=== PATIENT | female | born 1935 | race Caucasian/White ===

== ENCOUNTER 2019-03-31 13:58 | Emergency (ER) | payer MEDICARE, OTHER ==
[~2019-03-31] VITALS: Ht 162.6 cm; Wt 49.9 kg
--- NOTE | 2019-03-31 18:37 | Diagnostic Imaging Report ---
History: Fall, pain Comparison studies: None Technique: Axial images were obtained from the brain and cervical spine. Coronal and sagittal images reconstructed from the axial data. Dose modulation, iterative reconstruction, and/or weight based adjustment of the mA/kV was utilized to reduce the radiation dose to as low as reasonably achievable. Intravenous contrast: None Findings: Head CT: Scalp/skull: No abnormalities. No fractures, blastic or lytic lesions. Brain sulci: Appropriate for age. Ventricles: Mild compensatory dilatation. No hydrocephalus. Extra-axial spaces: Small lipoma along the anterior falx cerebri without mass effect. No fluid collections. Parenchyma: Hypodensity extending from the posterior limb of left internal capsule extends superiorly to the jenkins radiata and centrum semiovale white matter likely reflects sequela of prior vascular insult or remote hematoma. Additional subcentimeter round hypodensity within the right lentiform nuclei is also consistent with a remote lacunar infarction. Nonspecific bilateral frontoparietal patchy white matter hypodensity are likely related to small vessel ischemic changes. No masses, hemorrhage, acute or chronic cortical vascular insults. Sellar/suprasellar region: Partial empty sella. Craniocervical junction: Patent foramen magnum. No Chiari one malformation. Incidental findings: Mild atherosclerotic calcification in bilateral carotid siphon. Cervical spine CT: Airway: Patent. Fractures: None. Soft tissues: No gross abnormalities. Atlantoaxial articulation: Intact. Alignment: Reversal of the normal cervical lordosis. 2 mm grade 1 anterolisthesis at C4-C5. Cervicomedullary junction: No abnormalities. Patent foramen magnum. Vertebrae: No infection or neoplasm. Degenerative changes: Moderate degenerative changes and anterior atlantodental joint. C3-C4: Mild right foraminal stenosis due to uncovertebral arthrosis. C4-C5: Mild left foraminal stenosis due to facet and uncovertebral arthrosis. C5-C6: Moderate to severe degenerative disc disease. Posterior disc osteophyte complex results in mild canal stenosis. Moderate right foraminal stenosis due to uncovertebral arthrosis. C6-C7: Severe degenerative disc disease. Posterior disc osteophyte complex results in mild canal stenosis. Incidental finding: Emphysematous changes in bilateral lung apices. IMPRESSION: Head CT: No acute abnormalities. Chronic findings: 1. Mild supratentorial white matter microvascular ischemic changes. 2. Chronic lacunar infarct in right lentiform nucleus. 3. Sequel a of chronic vascular insult or hemorrhage in left posterior limb of internal capsule, jenkins radiata and centrum semiovale. Cervical spine CT: 1. No acute cervical spine fracture or dislocation. Reversal of normal cervical lordosis is either positional or due to muscle spasm. 2. Cannot adequately evaluate for ligament, spinal cord and or vascular abnormalities. 3. Multilevel cervical spondylosis as detailed above. A preliminary report was given by Neuroradiology fellow Dr. Smart at 6:37 PM on 03/31/2019. I have reviewed the images and agree with findings in the preliminary report. Signed by: Dr. Jenise Macdonald M.D. on 03/31/2019 8:34 PM
--- NOTE | 2019-03-31 18:56 | Diagnostic Imaging Report ---
EXAM: PELVIS AP 1-2 VIEWS DATE: 03/31/2019 4:48 PM INDICATION: ^fall ^[id number] ^[id number] COMPARISON: None FINDINGS: Single view of the pelvis shows no evidence for displaced fracture or dislocation. Sacral struts appear intact. No obvious fractures at the hips. Soft tissues unremarkable. IMPRESSION: No acute bony abnormality. Signed by: Dr. Mahad Gray M.D. on 03/31/2019 6:52 PM
--- NOTE | 2019-03-31 19:01 | Diagnostic Imaging Report ---
EXAM: CHEST SINGLE (PORTABLE) DATE: 03/31/2019 4:48 PM INDICATION: ^fall ^[id number] ^[id number] COMPARISON: None FINDINGS: Lines and tubes: None Heart size normal. No focal pulmonary opacity, pleural effusion or pneumothorax. Lucencies in the upper lobes with scattered lung markings suggest bullous emphysema. Upper abdomen unremarkable. Surgical clips are seen in the right upper quadrant. No acute bony abnormality identified. There is a suggestion of air in the soft tissues of the left cervical area although this may only represent air trapped between skin folds. This may be better defined on CT of the neck of the same date. IMPRESSION: No evidence for acute disease. Likely changes of bullous emphysema. Questionable air in the left cervical soft tissues. Signed by: Dr. Mahad Gray M.D. on 03/31/2019 6:58 PM
--- NOTE | 2019-03-31 20:42 | NUR ---
SPOKE TO [facility] AT [facility], 45 MIN ETA ARRIVAL
[2019-03-31 21:49] VITALS: BP 135/70
== END 2019-03-31 21:52 | disposition home or self-care (01) ==
LOC: ER 13:58
DX: S00.83XA Contusion of other part of head, initial encounter (principal); M54.2 Cervicalgia; R10.2 Pelvic and perineal pain; W07.XXXA Fall from chair, initial encounter; M47.892 Other spondylosis, cervical region
CPT/HCPCS: 70450; 71045; 72125; 72170; 93005; 99284

== ENCOUNTER 2019-03-31 23:56 | Emergency (ER) | payer MEDICARE, OTHER ==
[~2019-03-31] VITALS: Ht 162.6 cm; Wt 49.9 kg
--- NOTE | 2019-04-01 01:18 | Diagnostic Imaging Report ---
History:Fall, right facial swelling. Comparison studies: None Technique: Axial images were obtained through the maxillofacial region. Coronal and sagittal images reconstructed from the axial data. Dose modulation, iterative reconstruction, and/or weight based adjustment of the mA/kV was utilized to reduce the radiation dose to as low as reasonably achievable. Intravenous contrast: None Findings: Soft tissues: Markedly right facial (the articular, prezygomatic, premaxillary and perimandibular soft tissue edema/hematoma. Minimal soft tissue emphysema in right retroantral region. Moderate enlargement of right masseter muscle possibly represents posttraumatic hematoma. Bones: Acute displaced fracture of the posterior lateral wall of right maxillary sinus. Chronic fracture deformity of right nasal bone without overlying soft tissue edema. Orbits: Globes: Intact Extra or intraconal abnormalities: None. Paranasal sinuses: Partial hemorrhagic opacification of right maxillary sinus with an air-fluid level. IMPRESSION: 1. Acute displaced fracture of the posterior lateral wall of right maxillary sinus. 2. Moderate right facial soft tissue edema/hematoma. Moderate right masseter muscle contusion/hematoma. 3. Chronic fracture deformity of right nasal bone. 4. Partial hemorrhagic opacification of right maxillary sinus. Signed by: Dr. Jenise Macdonald M.D. on 04/01/2019 1:15 AM
--- NOTE | 2019-04-01 01:18 | Diagnostic Imaging Report ---
Examination: Single AP view of the chest. COMPARISON: 03/31/2019 at 1822 INDICATION: Status post fall DISCUSSION: The lungs remain hyperinflated with hyperlucency of the lung apices. No new consolidation, pleural effusion, or pneumothorax. Multiple skin folds project over the left lung, as previously seen. Stable cardiomediastinal contour with tortuosity and atherosclerotic calcification of the thoracic aorta. Convexity of the AP window likely indicates pulmonary hypertension. No acute osseous abnormality. IMPRESSION: No acute cardiopulmonary abnormality or appreciable interval change relative to the examination from 03/31/2019. Signed by: Dr. Robbi Suero M.D. on 04/01/2019 1:15 AM
--- NOTE | 2019-04-01 01:20 | Diagnostic Imaging Report ---
Exam: Right knee 2 views History: Pain status post fall Comparison: None. Findings: No acute displaced fracture or dislocation. Advanced tricompartmental arthrosis with joint space narrowing, subchondral sclerosis, and marginal osteophytosis. No joint effusion. Soft tissues are unremarkable. Impression: No acute osseous abnormalities. Advanced tricompartmental arthrosis. Signed by: Dr. Robbi Suero M.D. on 04/01/2019 1:17 AM
--- NOTE | 2019-04-01 01:23 | Diagnostic Imaging Report ---
Exam: Right hip 2 views with frontal pelvis History: Status post fall Comparison: Pelvic radiograph 03/31/2019 Findings: No acute, displaced fracture or dislocation. The femoral head projects appropriately over the acetabulum. Mild symmetric degenerative arthrosis of the hips. The inferior sacral body and coccyx are obscured by rectal gas and stool. The sacral foramina appear intact superiorly. Sacroiliac joints and symphysis pubis are intact. Impression: 1. No acute osseous abnormality. Signed by: Dr. Robbi Suero M.D. on 04/01/2019 1:20 AM
[2019-04-01 01:26] LABS: BASOPHILS % 0.3 % (0.0-1.0); EOSINOPHILS # (AUTO) 0.2 (0.0-0.4); EOSINOPHILS % 1.6 % (0.0-6.0); HEMATOCRIT 42.8 % (34.2-44.1); HEMOGLOBIN 14.1 g/dL (12.0-16.0); LYMPHOCYTES # (AUTO) 1.7 (1.0-3.2); LYMPHOCYTES % 14.9 % (18.0-39.1); MEAN CORPUSCULAR HGB CONC 32.9 g/dL (31-35); MEAN CORPUSCULAR VOLUME 94.1 fL (81-99); MONOCYTES # (AUTO) 0.9 (0.2-0.8); MONOCYTES % 7.7 % (4.4-11.3); NEUTROPHILS # (AUTO) 8.4 (2.1-6.9); NEUTROPHILS % 75.1 % (38.7-80.0); PLATELET COUNT 134 x10e3/uL (140-360); RED BLOOD COUNT 4.55 x10e6/uL (3.6-5.1); RED CELL DISTRIBUTION WIDTH 12.2 % (11.7-14.4)
[2019-04-01 02:04] LABS: ALANINE AMINOTRANSFERASE 10 IU/L (0-55); ALBUMIN 3.5 g/dL (3.5-5.0); ALBUMIN/GLOBULIN RATIO 0.9 (0.8-2.0); ALKALINE PHOSPHATASE 84 IU/L (40-150); ANION GAP 12.4 mmol/L (8-16); BLOOD UREA NITROGEN 13 mg/dL (7-26); BUN/CREATININE RATIO 17 (6-25); CALCIUM 9.6 mg/dL (8.4-10.2); CARBON DIOXIDE 28 mmol/L (22-29); CHLORIDE 103 mmol/L (98-107); CREATINE KINASE 230 IU/L (29-168); CREATININE, SERUM 0.78 mg/dL (0.57-1.11); EST GLOMERULAR FILTRATION RATE > 60 ML/MIN (60-); GLUCOSE 102 mg/dL (74-118); POTASSIUM 4.4 mmol/L (3.5-5.1); SODIUM 139 mmol/L (136-145)
--- NOTE | 2019-04-01 02:24 | Diagnostic Imaging Report ---
EXAMINATION: Head CT without contrast. HISTORY:Fall. COMPARISON:CT brain from 03/31/2019. TECHNIQUE: Multidetector axial images were obtained from the foramen magnum to the vertex without contrast. The images were reconstructed using brain and bone algorithms. Thin section brain images were reformatted into coronal and sagittal planes. Dose modulation, iterative reconstruction, and/or weight based adjustment of the mA/kV was utilized to reduce the radiation dose to as low as reasonably achievable. Intravenous contrast: None IMAGE QUALITY: Acceptable. FINDINGS: Skull/scalp: No lytic or blastic. lesions. No surgical changes. Parenchyma: Unchanged focal hypodensity in posterior limb of left internal capsule that extends superiorly to the jenkins radiata and centrum semiovale represents seque[place] of prior vascular insult or remote hematoma. Unchanged chronic lacunar infarct in right lentiform nucleus. Unchanged nonspecific bilateral frontoparietal patchy white matter hypodensity likely represent small vessel ischemic changes. No acute hemorrhage, mass or acute major vascular territorial infarct. Arteries: No density suggestive of thrombosis. Mild atherosclerotic calcification in bilateral carotid siphon. Dural sinuses: No abnormal density suggestive of thrombosis. Ventricles: No hydrocephalus or displacement. Extra-axial spaces: No abnormal density. Brain volume: Generalized age-related cerebral volume loss. Craniocervical junction: No mass, Chiari malformation, or basilar invagination. Sella: No mass. Paranasal/mastoid sinuses: Partial hemorrhagic opacification of right maxillary sinus with acute displaced fracture of posterior lateral wall. IMPRESSION: No acute intracranial abnormality. No change since CT brain from 03/31/2019. Chronic findings: 1. Generalized age-related cerebral volume loss. 2. Mild supratentorial white matter microvascular ischemic changes. 3. Seque[place] of chronic vascular insult or hemorrhage in left posterior limb of internal capsule, jenkins radiata and centrum semiovale. 4. Chronic lacunar infarct in right lentiform nucleus. Signed by: Dr. Jenise Macdonald M.D. on 04/01/2019 2:21 AM
[2019-04-01] MEDS ORDERED: CIPROFLOXACIN 400 MG/D5W 200ML 200 ML IV SCH (02:30)
[2019-04-01] MEDS ORDERED: MORPHINE SULFATE INJ 4 MG/ML INJ 1ML IV PRN (02:30)
[2019-04-01] MEDS ORDERED: TETANUS/DIPHTHERIA TOX ADULT 0.5 ML SYR IM ONE (03:45)
--- NOTE | 2019-04-01 04:40 | NUR ---
PT'S DAUGHTER (ARIELA) CONTACTED AND INFORMED PT IS TO BE TRANSFERED TO [place] FOR MAXILLOFACIAL SURGEON EVALUATION;
[2019-04-01] MEDS: TETANUS/DIPHTHERIA TOX ADULT 0.5 ML SYR IM ONE ×2 (04:43→04:49)
--- NOTE | 2019-04-01 04:43 | Diagnostic Imaging Report ---
History: Fall. Comparison studies: CT cervical spine from 03/31/2019. Technique: Axial images were obtained through the cervical region.. Coronal and sagittal images reconstructed from the axial data. Dose modulation, iterative reconstruction, and/or weight based adjustment of the mA/kV was utilized to reduce the radiation dose to as low as reasonably achievable. Intravenous contrast: None Findings: Fractures: None. Soft tissue injuries: Subcutaneous soft tissue edema/hematoma is partially visualized in the right perimandibular region, zipper ironer space and right anterolateral aspect of the neck. The airway is patent. Atlantoaxial articulation: Intact. Alignment: Reversal of normal cervical lordosis is either positional or due to muscle spasm.. Levocurvature of the upper cervical spine is positional, as head is tilted. Unchanged 2 mm grade 1 anterolisthesis at C4-C5. Cervicomedullary junction: No abnormalities. The foramen magnum is patent. Soft tissues: No abnormalities. Vertebrae: No fractures, infection or neoplasm. Degenerative changes: Moderate degenerative changes in the anterior atlantodental joint. C3-C4: Mild right foraminal stenosis due to uncovertebral arthrosis. C4-C5: Mild left foraminal stenosis due to facet and uncovertebral arthrosis. C5-C6: Moderate to severe degenerative disc disease. Posterior disc osteophyte complex results in mild canal stenosis. Moderate right foraminal stenosis due to uncovertebral arthrosis. C6-C7: Severe degenerative disc disease. Posterior disc osteophyte complex results in mild canal stenosis. Incidental finding: Emphysematous changes in bilateral lung apices. IMPRESSION: 1. No acute cervical spine fracture or dislocation. Reversal of normal cervical lordosis is either positional or due to muscle spasm. 2. Extensive subcutaneous soft tissue edema/hematoma in right anterolateral aspect of the neck and right face is partially visualized. 3. Ligament, spinal cord and or vascular abnormalities cannot be excluded on the basis of this examination. 4. Unchanged cervical spondylosis as detailed above. Signed by: Dr. Jenise Macdonald M.D. on 04/01/2019 4:39 AM
--- NOTE | 2019-04-01 05:11 | NUR ---
REPORT CALLED TO SHEEBA RN-CHARGE NURSE AT [facility]
[2019-04-01 05:12] LABS: BILIRUBIN,URINE NEGATIVE (NEGATIVE); CLARITY,URINE CLEAR (CLEAR); COLOR,URINE YELLOW (YELLOW); KETONES,URINE 1+ (NEGATIVE); LEUKOCYTE ESTERASE ,URINE NEGATIVE (NEGATIVE); NITRITE,URINE NEGATIVE (NEGATIVE); PROTEIN,URINE DIPSTICK NEGATIVE (NEGATIVE); URINE UROBILINOGEN 0.2 mg/dL (0.2 - 1)
[2019-04-01 05:31] LABS: BACTERIA,URINE MODERATE /HPF; EPITHELIAL CELLS,URINE MODERATE /LPF; WBC,URINE (MAN) 0-5 /HPF (0-5)
[2019-04-01 05:39] VITALS: BP 132/63
== END 2019-04-01 05:41 | disposition other institution (70) ==
LOC: ER 23:56
DX: S02.402A Zygomatic fracture, unspecified side, initial encounter for closed fracture (principal); R55 Syncope and collapse; S70.01XA Contusion of right hip, initial encounter; S80.01XA Contusion of right knee, initial encounter; W19.XXXA Unspecified fall, initial encounter; Y92.128 Other place in nursing home as the place of occurrence of the external cause
CPT/HCPCS: 36415; 70450; 70486; 71045; 72125; 73502; 73560; 80053; 81001; 82550; 82553; 84484; 85025; 90471; 90714; 93005; 99284; J0744

== ENCOUNTER 2019-11-18 03:31 | Emergency (ER) | payer MEDICARE, OTHER ==
[~2019-11-18] VITALS: Ht 162.6 cm; Wt 49.9 kg
--- OUTSIDE RECORDS SUMMARY | 2019-11-18 03:34 | XMS REPORT ---
Author [facility] Address Unknown Phone Unavailable Care Team Providers Care Foreign Language Stenographer Name Role Phone ANNA WATSON, DARREN PP LILLIAN TOTH Unavailable Unavailable Trinity WHITTINGTON Unavailable Unavailable Payers Payer Name Policy Type Policy Number Effective Date Expiration Date [facility] [id number] 2017 00:00:00 [employer] [id number] 2001 00:00:00 [facility] [id number] 2017 00:00:00 [employer] [id number] 2001 00:00:00 Problems This patient has no known problems. Allergies, Adverse Reactions, Alerts Allergy Name Allergy Type Status Severity Reaction(s) Onset Date Inactive Date Treating Clinician Comments codeine DA Active U 2019-04-01 00:00:00 Penicillin Allergy to Substance Active Unknown 2019-03-31 00:00:00 Codeine Allergy to Substance Active Unknown 2019-03-31 00:00:00 CODEINE DA Active U 2008-11-24 00:00:00 No Known Contrast Allergies DA Active U 2008-11-24 00:00:00 No Known Food Allergies DA Active U 2008-11-24 00:00:00 No Known Other Allergies DA Active U 2008-11-24 00:00:00 Medications This patient has no known medications. Procedures and Interventions Procedure Date / Time Performed Performing Clinician Computed tomography of brain without radiopaque contrast 2019-04-01 00:00:[address] maxillofacial area wo contrast 2019-04-01 00:00:00 LILLIAN TOTH Computed tomography of cervical spine without contrast 2019-04-01 00:00:00 LILLIAN TOTH Computed tomography of brain without radiopaque contrast 2019-03-31 00:00:00 KENDRA RAMOS Computed tomography of cervical spine without contrast 2019-03-31 00:00:00 KENDRA RAMOS Encounters Start Date/Time End Date/Time Encounter Type Admission Type Attending [facility] Care Facility Care Department Encounter ID 2019-03-31 23:56:00 2019-04-01 05:41:00 Departed Emergency Room [address] [facility] [id number] 2019-03-31 13:58:00 2019-03-31 21:52:00 Departed Emergency Room [address] [facility] [id number] Results Test Description Test Time Test Comments Text Results Atomic Results Result Comments - XR CHEST 1 V 2019-04-08 15:20:00 FAX: Adan Rachel [phone] [place]: St: ADM FAX: Geremias Calvo MD [phone] Name: KEVIN GRIMALDO [facility] : 1935 Age/S: 83/F [address] [place] [address] Unit #: [id number] Loc: [address] [address] Phys: Geremias Blanco MD Acct: [id number] Dis Date: Status: ADM IN PHONE #: [phone] Exam Date: 04/08/2019 1454 FAX #: [phone] Reason: right CT removal EXAMS: CPT CODE: [id number] XR CHEST 1 V 84481 CLINICAL HISTORY:right CT removal COMPARISON:April 08, 2019 at 0818. Frontal film of the chest performed at 1423 on April 08, 2019 demonstrates that previously noted pigtail catheter in right hemithorax has been removed. Monitor leads are in place. Heart size is normal. Bibasilar pulmonary opacities are present, unchanged since previous examination. There is no evidence of recurrence of pneumothorax since removal of the chest tube. There is evidence of rib fracture identified on the right side. Emphysematous changes are present in both upper lung stern. IMPRESSION: 1. Interval removal of right-sided chest tube with no evidence of pneumothorax. 2. Bibasilar pulmonary opacities without significant interval change since earlier examination done on the same day. 3. Emphysematous changes in both upper lung stern are present. at 1520 Reported and signed by: Danis Salomon M.D. CC: Adan Nelson MD; Geremias Blanco MD Technologist: AN Rincon RT(R); Alexa Taveras RT(R) Trnscrd Date/Time/By: 04/08/2019 (1520) : By: John [facility] Print D/T: S: 04/08/2019 (2983) PAGE 1 Signed Report - XR CHEST 1 V 2019-04-08 08:53:00 FAX: Adan Rachel [phone] [place]: St: [facility] FAX: Geremias Calvo MD [phone] Name: KEVIN GRIMALDO [facility] : 1935 Age/S: 83/F [address] [place] [address] Unit #: [id number] Loc: [place] [address] Phys: Geremias Blanco MD Acct: [id number] Dis Date: Status: ADM IN PHONE #: [phone] Exam Date: 04/08/2019836 FAX #: [phone] Reason: f/u right ptx EXAMS: CPT CODE: [id number] XR CHEST 1 V 60020 CLINICAL HISTORY:Follow-up right pneumothorax. COMPARISON:April 07, 2019 at 0927 Frontal film of the chest performed at 0818 on April 08, 2019 demonstrates monitor leads in place. Chest tube is present in right hemithorax. Heart size is normal. Bibasilar opacities are present with slightly better aeration of right lung compared to previous examination. Skinfold is present along the right lateral chest wall. Previously noted apical pneumothorax is not perceptible on current examination. Presence of skin fold on the right demonstrates an evaluation of pneumothorax somewhat difficult and if clinically desired, repeat examination is recommended. IMPRESSION: 1. Chest tube present in right hemithorax. 2. Bibasilar pulmonary opacities with better aeration of right lung. 3. No convincing pneumothorax is seen on the right side however, because of presence of skin fold if clinically desired, repeat examination is recommended. at 0853 Reported and signed by: Danis Salomon M.D. CC: Adan Nelson MD; Geremias Blanco MD Technologist: AN Rincon RT(R) Trnscrd Date/Time/By: 04/08/2019 (0853) : By: John Orig Print D/T: S: 04/08/2019 (0856) PAGE 1 Signed Report - XR CHEST 1 V 2019-04-07 10:42:00 FAX: Adan Rachle [phone] [place]: St: [facility] FAX: Julianna Lowry Name: KEVIN GRIMALDO [facility] : 1935 Age/S: 83/F [address] [place] [address] Unit #: [id number] Loc: [place] [address] Phys: Julianna Lowry ERNIE AGACNP Acct: [id number] Dis Date: Status: ADM IN PHONE #: [phone] Exam Date: 04/07/2019 1031 FAX #: [phone] Reason: right chest tube, right pneumothorax EXAMS: CPT CODE: [id number] XR CHEST 1 V 30017 CHEST 1 VIEW: 04/07/2019 COMPARISON: April 06, 2019 CLINICAL HISTORY: right chest tube, right pneumothorax FINDINGS: The cardiovascular silhouette is normal in size. Small bore right-sided chest tube is again seen. Bibasilar infiltrates are present, right greater than left. These are relatively unchanged. There is questionable trace residual right apical pneumothorax. No evidence of mediastinal shift. IMPRESSION: Persistent bibasilar infiltrates, right greater than left. These are relatively stable. Questionable trace residual right apical pneumothorax. at 1042 Reported and signed by: Baltazar Dodson M.D. CC: Adan Nelson MD; JULIANNA LOWRY [facility] Technologist: RT Gayla(Amy) Trnscrd Date/Time/By: 04/07/2019 (8967) : By: [email or web address] Orig Print D/T: S: 04/07/2019 (6751) PAGE 1 Signed Report - XR CHEST 1 V 2019-04-06 10:32:00 FAX: Adan Rachel [phone] [place]: St: ADM FAX: Geremias Calvo MD [phone] Name: KEVIN GRIMALDO [facility] : 1935 Age/S: 83/F [address] [place] [address] Blvd Unit #: [id number] Loc: [address] [place] [address] Phys: Geremias Blanco MD Acct: [id number] Dis Date: Status: ADM IN PHONE #: [phone] Exam Date: 04/06/2019 1021 FAX #: [phone] Reason: f/u ptx EXAMS: CPT CODE: [id number] XR CHEST 1 V 87472 EXAM: Single view AP chest. EXAM DATE: 04/06/2019 at 0848 hours CLINICAL HISTORY: f/u ptx COMPARISON: April 05, 2019 at 0839 hours Small caliber right-sided chest tube is present and monitor wires overlie the chest. There is questionable minimal residual apical pneumothorax although this is not well visualized. Bilateral increased opacities in the lower lungs are noted. The findings may represents pleural effusions although infectious process cannot be excluded. Heart size is within normal limits. Atherosclerotic calcifications are identified in the aorta. Visualized osseous structures demonstrate no acute abnormalities. IMPRESSION: Questionable small right apical none pneumothorax residual. Opacities in the lower lungs bilaterally may represent pleural effusions. The possibility of early infiltrates cannot be excluded. The finding is not significantly changed compared to the prior exam. at 1032 Reported and signed by: Tarsha Larson M.D. CC: Adan Nelson MD; Geremias Blanco MD Technologist: Elvira Forbes, RT(R), RTT Trnpard Date/Time/By: 04/06/2019 (1032) : By: Jahaira Orig Print D/T: S: 04/06/2019 (1035) PAGE 1 Signed Report - XR CHEST 1 V 2019-04-05 09:58:00 FAX: Adan Rachel [phone] [place]: St: ADM FAX: Geremias Calvo MD [phone] Name: KEVIN GRIMALDO [facility] [place] : 1935 Age/S: 83/F [address] [place] [address] Blvd Unit #: [id number] Loc: [place] [address] Phys: Geremias Blanco MD Acct: [id number] Dis Date: Status: ADM IN PHONE #: [phone] Exam Date: 04/05/2019 09 FAX #: [phone] Reason: f/u ptx EXAMS: CPT CODE: [id number] XR CHEST 1 V 54484 Portable chest performed April 05, 2019 0840 hours. COMPARISON: April 04, 2019. CLINICAL HISTORY: f/u ptx. DISCUSSION: Single portable chest is submitted. Smallbore right pleural chest tube is again noted. Increasing focal opacity in the right lower lobe, compatible with atelectasis or infiltrate. No clear residual pneumothorax is seen. Heart size is normal. Atherosclerotic vascular calcifications are present. Degenerative changes are present throughout the osseous structures.. IMPRESSION: 1. Increasing focal opacity in the right lower lobe, compatible with atelectasis or infiltrate. 2. No clear residual pneumothorax seen. at 0958 Reported and signed by: Veronique Bender M.D. CC: Adan Nelson MD; Geremias Blanco MD Technologist: Linda Madsen RT(R)R Trnscrd Date/Time/By: 04/05/2019 (0958) : By: AdelineG Orig Print D/T: S: 04/05/2019 (1009) PAGE 1 Signed Report - XR ELBOW 2 VIEWS RT 2019-04-04 20:15:00 FAX: Julianna Lowry [place]: St: ADM FAX: Orlando Slater MD [phone] Name: KEVIN GRIMALDO [facility] [place] : 1935 Age/S: 83/F [address] [place] [address] Unit #: [id number] Loc: [place] [address] Phys: Julianna Lowry [employer] AGACNP Acct: [id number] Dis Date: Status: ADM IN PHONE #: [phone] Exam Date: 04/04/20191934 FAX #: [phone] Reason: right elbow pain, 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 Mild soft tissue thickening around the elbow. IMPRESSION: No acute fracture or malalignment SL: AP-H at 2014 Reported and signed by: Elias Benitez M.D. CC: JULIANNA KLEIN; Orlando Ball MD Technologist: Quentin Dumont RT(R) Trnscrd Date/Time/By: 04/04/2019 (2014) : By: [email or web address] Orig Print D/T: S: 04/04/2019 (2018) PAGE 1 Signed Report CBC W/AUTO DIFF 2019-04-04 14:21:00 WHITE BLOOD CELL (test code=WBC) 11.09 x10 3/uL 4.5-11.0 RED BLOOD CELL (test code=RBC) 3.67 x10 6/uL 3.54-5.02 HEMOGLOBIN (test code=HGB) 11.6 g/dL 11.0-15.0 HEMATOCRIT (test code=HCT) 36.5 % 33.0-45.0 MEAN CELL VOLUME (test code=MCV) 99.5 fL 81.0-99.0 MEAN CELL HGB (test code=MCH) 31.6 pg 27.0-33.0 MEAN CELL HGB CONCETRATION (test code=MCHC) 31.8 g/dL 33.0-37.0 RED CELL DISTRIBUTION WIDTH CV (test code=RDW) 12.7 % 11.5-14.5 RED CELL DISTRIBUTION WIDTH SD (test code=RDW-SD) 46.2 fL 37.0-54.0 PLATELET COUNT (test code=PLT) 112 x10 3/uL 150-400 MEAN PLATELET VOLUME (test code=MPV) 10.6 fL 7.0-9.0 NEUTROPHIL % (test code=NT%) 81.0 % 56.0-77.0 IMMATURE GRANULOCYTE % (test code=IG%) 0.3 % 0.0-2.0 LYMPHOCYTE % (test code=LY%) 8.6 % 14.0-32.0 MONOCYTE % (test code=MO%) 9.7 % 4.8-9.0 EOSINOPHIL % (test code=EO%) 0.1 % 0.3-3.7 BASOPHIL % (test code=BA%) 0.3 % 0.0-2.0 NUCLEATED RBC % (test code=NRBC%) 0.0 % 0-0 NEUTROPHIL # (test code=NT#) 8.99 x10 3/uL 2.0-7.6 IMMATURE GRANULOCYTE # (test code=IG#) 0.03 x10 3/uL 0.00-0.03 LYMPHOCYTE # (test code=LY#) 0.95 x10 3/uL 1.0-3.8 MONOCYTE # (test code=MO#) 1.08 x10 3/uL 0.1-0.8 EOSINOPHIL # (test code=EO#) 0.01 x10 3/uL 0.0-0.2 BASOPHIL # (test code=BA#) 0.03 x10 3/uL 0.0-0.2 NUCLEATED RBC # (test code=NRBC#) 0.00 x10 3/uL 0.0-0.1 MANUAL DIFF REQUIRED (test code=MDIFF) NO PLT [id number] 14:21:00* Test Item Value Reference Range Comments PLATELET ESTIMATE (test code=PLTEST) 140-175 THOUSAND ADEQUATE PLATELET MORPHOLOGY (test code=PLTMORPH) LARGE PLATELETS - XR CHEST 1 [id number] 11:24:00 FAX: Orlando Slater MD [phone] [place]: St: ADM FAX: Geremias Calvo MD [phone] Name: KEVIN GRIMALDO [facility] [place] : 1935 Age/S: 83/F [address] [place] [address] Unit #: [id number] Loc: [address] [place] [address] Phys: Geremias Blanco MD Acct: [id number] Dis Date: Status: ADM IN PHONE #: [phone] Exam Date: 04/04/2019918 FAX #: [phone] Reason: f/u ptx EXAMS: CPT CODE: [id number] XR CHEST 1 V 55339 Portable chest performed April 04, 2019 0920 hours. COMPARISON: April 03, 2019. CLINICAL HISTORY: f/u ptx. DISCUSSION: Single portable chest is submitted. Right pleural chest tube is again noted. No clear residual pneumothorax is seen. Stable atelectasis is present in both lungs. Heart size is normal. Atherosclerotic vascular calcifications are noted. No acute osseous abnormality seen. IMPRESSION: 1. No clear residual right pneumothorax is seen.. at 1124 Reported and signed by: Veronique Bender M.D. CC: Orlando Ball MD; Geremias Blanco MD Technologist: Sherron Tran RT(R) Trnscrd Date/Time/By: 04/04/2019 (4161) : By: Aminata Orig Print D/T: S: 04/04/2019 (2201) PAGE 1 Signed Report CBC W/AUTO [id number] 07:10:00* Test Item Value Reference Range Comments WHITE BLOOD CELL (test code=WBC) 11.09 x10 3/uL 4.5-11.0 RED BLOOD CELL (test code=RBC) 3.67 x10 6/uL 3.54-5.02 HEMOGLOBIN (test code=HGB) 11.6 g/dL 11.0-15.0 HEMATOCRIT (test code=HCT) 36.5 % 33.0-45.0 MEAN CELL VOLUME (test code=MCV) 99.5 fL 81.0-99.0 MEAN CELL HGB (test code=MCH) 31.6 pg 27.0-33.0 MEAN CELL HGB CONCETRATION (test code=MCHC) 31.8 g/dL 33.0-37.0 RED CELL DISTRIBUTION WIDTH CV (test code=RDW) 12.7 % 11.5-14.5 RED CELL DISTRIBUTION WIDTH SD (test code=RDW-SD) 46.2 fL 37.0-54.0 PLATELET COUNT (test code=PLT) 112 x10 3/uL 150-400 MEAN PLATELET VOLUME (test code=MPV) 10.6 fL 7.0-9.0 NEUTROPHIL % (test code=NT%) 81.0 % 56.0-77.0 IMMATURE GRANULOCYTE % (test code=IG%) 0.3 % 0.0-2.0 LYMPHOCYTE % (test code=LY%) 8.6 % 14.0-32.0 MONOCYTE % (test code=MO%) 9.7 % 4.8-9.0 EOSINOPHIL % (test code=EO%) 0.1 % 0.3-3.7 BASOPHIL % (test code=BA%) 0.3 % 0.0-2.0 NUCLEATED RBC % (test code=NRBC%) 0.0 % 0-0 NEUTROPHIL # (test code=NT#) 8.99 x10 3/uL 2.0-7.6 IMMATURE GRANULOCYTE # (test code=IG#) 0.03 x10 3/uL 0.00-0.03 LYMPHOCYTE # (test code=LY#) 0.95 x10 3/uL 1.0-3.8 MONOCYTE # (test code=MO#) 1.08 x10 3/uL 0.1-0.8 EOSINOPHIL # (test code=EO#) 0.01 x10 3/uL 0.0-0.2 BASOPHIL # (test code=BA#) 0.03 x10 3/uL 0.0-0.2 NUCLEATED RBC # (test code=NRBC#) 0.00 x10 3/uL 0.0-0.1 MANUAL DIFF REQUIRED (test code=MDIFF) NO PLT [id number] 07:10:00* Test Item Value Reference Range Comments PLATELET ESTIMATE (test code=PLTEST) THOUSAND ADEQUATE CBC W/AUTO [id number] 07:10:00* Test Item Value Reference Range Comments WHITE BLOOD CELL (test code=WBC) 11.09 x10 3/uL 4.5-11.0 RED BLOOD CELL (test code=RBC) 3.67 x10 6/uL 3.54-5.02 HEMOGLOBIN (test code=HGB) 11.6 g/dL 11.0-15.0 HEMATOCRIT (test code=HCT) 36.5 % 33.0-45.0 MEAN CELL VOLUME (test code=MCV) 99.5 fL 81.0-99.0 MEAN CELL HGB (test code=MCH) 31.6 pg 27.0-33.0 MEAN CELL HGB CONCETRATION (test code=MCHC) 31.8 g/dL 33.0-37.0 RED CELL DISTRIBUTION WIDTH CV (test code=RDW) 12.7 % 11.5-14.5 RED CELL DISTRIBUTION WIDTH SD (test code=RDW-SD) 46.2 fL 37.0-54.0 PLATELET COUNT (test code=PLT) 112 x10 3/uL 150-400 MEAN PLATELET VOLUME (test code=MPV) 10.6 fL 7.0-9.0 NEUTROPHIL % (test code=NT%) 81.0 % 56.0-77.0 IMMATURE GRANULOCYTE % (test code=IG%) 0.3 % 0.0-2.0 LYMPHOCYTE % (test code=LY%) 8.6 % 14.0-32.0 MONOCYTE % (test code=MO%) 9.7 % 4.8-9.0 EOSINOPHIL % (test code=EO%) 0.1 % 0.3-3.7 BASOPHIL % (test code=BA%) 0.3 % 0.0-2.0 NUCLEATED RBC % (test code=NRBC%) 0.0 % 0-0 NEUTROPHIL # (test code=NT#) 8.99 x10 3/uL 2.0-7.6 IMMATURE GRANULOCYTE # (test code=IG#) 0.03 x10 3/uL 0.00-0.03 LYMPHOCYTE # (test code=LY#) 0.95 x10 3/uL 1.0-3.8 MONOCYTE # (test code=MO#) 1.08 x10 3/uL 0.1-0.8 EOSINOPHIL # (test code=EO#) 0.01 x10 3/uL 0.0-0.2 BASOPHIL # (test code=BA#) 0.03 x10 3/uL 0.0-0.2 NUCLEATED RBC # (test code=NRBC#) 0.00 x10 3/uL 0.0-0.1 MANUAL DIFF REQUIRED (test code=MDIFF) NO PLT [id number] 07:10:00* Test Item Value Reference Range Comments PLATELET ESTIMATE (test code=PLTEST) THOUSAND ADEQUATE - CT DRN CAMDEN/RETRO [id number] 07:09:00 Name: KEVIN GRIMALDO [facility] : 1935 Age/S: 83 / F [address] [place] [address] Unit #: [id number] Loc: [place] [address] Phys: Geremias Blanco MD Acct: [id number] Dis Date: Status: ADM IN PHONE #: [phone] Exam Date: 04/03/2019 1655 FAX #: [phone] Reason: right pneumothorax EXAMS: CPT CODE: [id number] CT DRN CAMDEN/RETRO PERC 46898 PROCEDURE: Placement of percutaneous chest tube using CT guidance. INDICATION: 83-year-old female with right- sided pneumothorax. COMPARISON: Chest radiograph 04/03/2019 TECHNICAL: CT imaging performed at this location utilizes radiation dose optimization techniques which include one or more of the following: -Automated exposure control -Adjustment of the mA and/or kV according to patient size -Use of iterative reconstruction technique CT Radiation Dose: EWO=021.6 mGy-cm MODERATE SEDATION: Local anesthesia only. No sedation given. PROCEDURE: The procedure, risks, benefits and alternatives were discussed. Informed c onsent was obtained. Timeout was performed prior to the procedure. The patient was placed in the supine position. Initial imaging was performed to demonstrate the pneumothorax. The right upper chest was prepp ed and draped in the usual sterile fashion. 1% lidocaine was used for loca l anesthesia. Using imaging guidance, an 8.5-Greek pigtail catheter was a dvanced into the right pleural space using trocar technique. The pneumoth orax was evacuated. Final imaging was performed. The catheter was secured to the skin. Sterile dressing was applied. The drainage catheter was conn ected to a Pleur-evac. There were no evident complications and the patient had no complaints. FINDINGS: Initial imaging: Emphysematous changes in the lungs. Moderate right pneumothorax. Atelectasis/consoli dation noted involving the right lower lobe. Atherosclerotic calcificatio ns in the aorta and coronary arteries. Acute fractures noted involving th e right anterior 2nd and 3rd ribs. Old healed right posterior 8th and 9th rib fractures. Final imaging: Final images demonstrate percutaneous chest tube well positioned within the right pleural space with evacuation of the majority of the pneumothorax and reexpansion of the right lung. Persistent atelectasis/consolidation is noted involving the right lower lo be. PAGE 1 Signed Report (CONTINUED) Name: KEVIN GRIMALDO [facility] : 1935 Age/S: 83 / F [address] [place] [address] Blvd Unit #: [id number] Loc: [place] [address] Phys: Geremias Blanco MD Acct: [id number] Dis Date: Status: ADM IN PHONE #: [phone] Exam Date: 04/03/2019 1655 FAX #: [phone] Reason: right pneumothorax EXAMS: CPT CODE: [id number] DRN CAMDEN/RETRO PERC 81249 <Continued> IMPRESSION: 1. Technically successful placement of percutaneous chest tube within the right pleural space using CT guidance. SL: K58-H at 0709 Reported and signed by: Terrell Comer M.D. CC: Orlando Ball MD; Geremias Blanco MD Technologist:RT Frank(R)(CT); Johan CollinsI: D LP: Trnscb Date/Time: 04/04/2019 (0709) [email or web address] Orig Print D/T: S: 04/04/2019 (12) PAGE 2 Signed R eport RENAL FUNCTION [id number] 04:58:00* Test Item Value Reference Range Comments SODIUM (test code=NA) 147 mEq/L 134-147 POTASSIUM (test code=K) 3.8 mEq/L 3.4-5.0 CHLORIDE (test code=CL) 118 mEq/L 100-108 CARBON DIOXIDE (test code=CO2) 26 mEq/L 21-33 ANION GAP (test code=GAP) 7 0-20 GLUCOSE (test code=GLU) 90 mg/dL 70-110 BLOOD UREA NITROGEN (test code=BUN) 22 mg/dL 7-18 GLOMERULAR FILTRATION RATE (test code=GFR) 53.1 70-80 Units of measure=ml/min/1.73 m2 CREATININE (test code=CREAT) 1.0 mg/dL 0.6-1.3 ALBUMIN (test code=ALB) 2.40 g/dL 3.4-5.0 CALCIUM (test code=CA) 8.1 mg/dL 8.0-10.5 PHOSPHOROUS (test code=PHOS) 1.9 mg/dL 2.5-4.9 [id number] 04:58:00* Test Item Value Reference Range Comments MAGNESIUM (test code=MAG) 2.10 mg/dL 1.8-2.4 [id number] 23:37:00* Test Item Value Reference Range Comments TROPONIN-I (test code=TROPI) < 0.015 ng/mL 0.000-0.045 Negative: <=0.045 Positive: >=0.046 Correlation with serial results, other cardiac markers andclinical findings is necessary to determine the clinicalsignificance of this result. Results using different methodologies should not be comparedto one another as quantitative results may vary by method. [id number] 20:57:00* Test Item Value Reference Range Comments TROPONIN-I (test code=TROPI) < 0.015 ng/mL 0.000-0.045 Negative: <=0.045 Positive: >=0.046 Correlation with serial results, other cardiac markers andclinical findings is necessary to determine the clinicalsignificance of this result. Results using different methodologies should not be comparedto one another as quantitative results may vary by method. - XR CHEST 1 [id number] 18:35:00 FAX: Orlando Slater MD [phone] [place]: St: ADM FAX: Geremias Calvo MD [phone] Name: KEVIN GRIMALDO [facility] : 1935 Age/S: 83/F [address] [place] [address] Blvd Unit #: [id number] Loc: [address] [address] Phys: Geremias Blanco MD Acct: [id number] Dis Date: Status: ADM IN PHONE #: [phone] Exam Date: 04/03/20191814 FAX #: [phone] Reason: f/u ptx EXAMS: CPT CODE: [id number] XR CHEST 1 V 84558 PROCEDURE: Chest Radiograph. Clinical Indication: Follow-up pneumothorax. Comparison: Chest radiograph 04/03/2019 at 12:04 PM. FINDINGS: The chest shows interval near-complete resolution of a previously noted large right pneumothorax post small bore right pigtail chest tube placement. There is emphysematous change in the upper lobes with subsegmental atelectasis at the right lung base. The heart size and pulmonary vasculature are normal. The trachea is midline. There are no clinically significant osseous abnormalities noted. IMPRESSION: 1. Near complete interval resolution of a previously noted large right pneumothorax post small bore right chest tube placement. 2. Emphysematous change with right lower lobe subsegmental atelectasis. SL: CY-H at 1835 Reported and signed by: Reynold Rodriges M.D. CC: Orlando Ball MD; Geremias Blanco MD Technologist: RT Rich(R) Trnscrd Date/Time/By: 04/03/2019 (1835) : By: Alli Orig Print D/T: S: 04/03/2019 (733) PAGE 1 Signed Report PROCALCITONIN (PCT)2019-04-03 16:46:00* Test Item Value Reference Range Comments PROCALCITONIN (PCT) (test code=PROCAL) 1.37 ng/mL 0.00-0.05 PROCALCITONIN (PCT) NORMAL RANGE (ADULT): <0.05 NG/ML. * a concentration <0.5 ng/mL represents a low risk of severe sepsis and/or septic shock.* a concentration >2 ng/mL represents a high risk of severe sepsis and/or septic shock.Nevertheless, concentrations <0.5 ng/mL do not exclude aninfection, on account of localized infections (withoutsystemic signs) which can be associated with such lowconcentrations, or a systemic infection in its initialstages (< 6 hours). Furthermore, increased procalcitonincan occur without infection. PCT concentrations between 0.5and 2.0 ng/mL should be interpreted taking into account thepatient's history. It is recommended to retest PCT within6-24 hours if any concentrations <2 ng/mL are obtained. URINALYSIS [id number] 15:58:00* Test Item Value Reference Range Comments UA COLOR (test code=COLU) YELLOW YEL/STRAW UA APPEARANCE (test code=APPU) CLOUDY CLEAR UA GLUCOSE DIPSTICK (test code=DGLUU) NEGATIVE NEGATIVE UA BILIRUBIN DIPSTICK (test code=BILU) NEGATIVE NEGATIVE UA KETONE DIPSTICK (test code=KETU) NEGATIVE NEGATIVE UA SPECIFIC GRAVITY (test code=SGU) 1.014 1.005-1.030 UA BLOOD DIPSTICK (test code=MORRIS) 2+ NEGATIVE UA PH DIPSTICK (test code=DOMINIC) 5.0 5.0-7.0 UA PROTEIN DIPSTICK (test code=PROU) NEGATIVE NEGATIVE UA UROBILINIOGEN DIPSTICK (test code=URO) 0.2 mg/dL 0.2-1.0 UA NITRITE DIPSTICK (test code=AMARJIT) NEGATIVE NEGATIVE UA LEUKOCYTE ESTERASE DIPSTICK (test code=LEUU) NEGATIVE NEGATIVE UA RBC (test code=RBCU) 0-3 RBC/HPF 0-3 UA WBC NO REFLEX (test code=WBCUCL) 0-3 WBC/HPF 0-3 UA BACTERIA (test code=BACU) TRACE /HPF NONE SEEN UA SQUAMOUS CELLS (test code=SQU) 0-5 /HPF NONE SEEN UA HYALINE CAST (test code=HYALU) 6-10 /LPF NONE SEEN UA MUCUS (test code=MUCU) TRACE /LPF NONE SEEN UA AMORPHOUS SEDIMENT (test code=AMORU) TRACE /HPF NONE Indication for culture: Sev. Sepsis-no other srcSpecimen Description: JESUS CATHUA RFLX MICR CULT IF [id number] 15:58:00* Test Item Value Reference Range Comments UA WBC (test code=WBCU) 0-3 WBC/HPF 0-3 Indication for culture: Sev. Sepsis-no other srcSpecimen Description: [facility] [id number] 15:22:00* Test Item Value Reference Range Comments LACTIC ACID (test code=LACT) 1.2 mmol/L 0.4-1.9 [id number] 15:22:00* Test Item Value Reference Range Comments TROPONIN-I (test code=TROPI) < 0.015 ng/mL 0.000-0.045 Negative: <=0.045 Positive: >=0.046 Correlation with serial results, other cardiac markers andclinical findings is necessary to determine the clinicalsignificance of this result. Results using different methodologies should not be comparedto one another as quantitative results may vary by method. COMPREHENSIVE METABOLIC [id number] 15:22:00* Test Item Value Reference Range Comments SODIUM (test code=NA) 144 mEq/L 134-147 POTASSIUM (test code=K) 4.7 mEq/L 3.4-5.0 CHLORIDE (test code=CL) 113 mEq/L 100-108 CARBON DIOXIDE (test code=CO2) 31 mEq/L 21-33 ANION GAP (test code=GAP) 5 0-20 GLUCOSE (test code=GLU) 99 mg/dL 70-110 BLOOD UREA NITROGEN (test code=BUN) 31 mg/dL 7-18 GLOMERULAR FILTRATION RATE (test code=GFR) 30.9 70-80 Units of measure=ml/min/1.73 m2 CREATININE (test code=CREAT) 1.6 mg/dL 0.6-1.3 TOTAL PROTEIN (test code=PROT) 7.0 g/dL 6.4-8.2 ALBUMIN (test code=ALB) 3.00 g/dL 3.4-5.0 CALCIUM (test code=CA) 8.8 mg/dL 8.0-10.5 BILIRUBIN TOTAL (test code=BILT) 0.70 mg/dL 0.0-1.0 SGOT/AST (test code=AST) 170 IUnit/L 15-37 SGPT/ALT (test code=ALT) 66 IUnit/L 15-65 ALKALINE PHOSPHATASE TOTAL (test code=ALKP) 76 IUnit/L 20-125 [id number] 15:22:00* Test Item Value Reference Range Comments LIPASE (test code=LIP) 34 IUnit/L 73-393 PROTHROMBIN [id number] 15:16:00* Test Item Value Reference Range Comments PROTHROMBIN TIME PATIENT (test code=PTP) 13.1 SECONDS 9.3-12.9 INTERNATIONAL NORMAL RATIO (test code=INR) 1.2 0.8-1.2 TARGET INR BY INDICATION Indication INR1. Prophylaxis of venous thrombosis 2.0 - 3.0 (orthopedic surgery), Prophylaxis of venous thrombosis (other than high-risk surgery), Treatment of Deep Vein Thrombosis/Pulmonary Embolism, Prevention of systemic embolism - Tissue heart valves, Acute Myocardial Infarction (to prevent systemic embolism), Valvular heart disease, Atrial Fibrillation, Bileaflet mechanical valve in aortic position.2. Mechanical prosthetic valves (high risk), 2.5 - 3.5 Presence of Lupus Anticoagulant or Antiphospholipid Antibodies, Prevention of systemic embolism - Acute Myocardial Infarction (to prevent recurrent infarct). THROMBOPLASTIN TIME [id number] 15:16:00* Test Item Value Reference Range Comments THROMBOPLASTIN TIME PARTIAL (test code=PTT) 28.2 Seconds 25.0-39.5 Therapeutic Range: 50.4 - 88.3 Seconds Effective 11/15/2018 COMPREHENSIVE METABOLIC [id number] 15:11:00* Test Item Value Reference Range Comments SODIUM (test code=NA) 144 mEq/L 134-147 POTASSIUM (test code=K) 4.7 mEq/L 3.4-5.0 CHLORIDE (test code=CL) 113 mEq/L 100-108 CARBON DIOXIDE (test code=CO2) 31 mEq/L 21-33 ANION GAP (test code=GAP) 5 0-20 GLUCOSE (test code=GLU) 99 mg/dL 70-110 BLOOD UREA NITROGEN (test code=BUN) 31 mg/dL 7-18 GLOMERULAR FILTRATION RATE (test code=GFR) 70-80 CREATININE (test code=CREAT) mg/dL 0.6-1.3 TOTAL PROTEIN (test code=PROT) g/dL 6.4-8.2 ALBUMIN (test code=ALB) g/dL 3.4-5.0 CALCIUM (test code=CA) 8.8 mg/dL 8.0-10.5 BILIRUBIN TOTAL (test code=BILT) mg/dL 0.0-1.0 SGOT/AST (test code=AST) IUnit/L 15-37 SGPT/ALT (test code=ALT) IUnit/L 15-65 ALKALINE PHOSPHATASE TOTAL (test code=ALKP) IUnit/L 20-125 [id number] 15:11:00* Test Item Value Reference Range Comments LIPASE (test code=LIP) 34 IUnit/L 73-393 CBC W/AUTO [id number] 14:55:00* Test Item Value Reference Range Comments WHITE BLOOD CELL (test code=WBC) 14.25 x10 3/uL 4.5-11.0 RED BLOOD CELL (test code=RBC) 4.33 x10 6/uL 3.54-5.02 HEMOGLOBIN (test code=HGB) 13.6 g/dL 11.0-15.0 HEMATOCRIT (test code=HCT) 42.4 % 33.0-45.0 MEAN CELL VOLUME (test code=MCV) 97.9 fL 81.0-99.0 MEAN CELL HGB (test code=MCH) 31.4 pg 27.0-33.0 MEAN CELL HGB CONCETRATION (test code=MCHC) 32.1 g/dL 33.0-37.0 RED CELL DISTRIBUTION WIDTH CV (test code=RDW) 12.4 % 11.5-14.5 RED CELL DISTRIBUTION WIDTH SD (test code=RDW-SD) 44.9 fL 37.0-54.0 PLATELET COUNT (test code=PLT) 151 x10 3/uL 150-400 MEAN PLATELET VOLUME (test code=MPV) 10.8 fL 7.0-9.0 NEUTROPHIL % (test code=NT%) 83.6 % 56.0-77.0 IMMATURE GRANULOCYTE % (test code=IG%) 0.8 % 0.0-2.0 LYMPHOCYTE % (test code=LY%) 6.8 % 14.0-32.0 MONOCYTE % (test code=MO%) 8.4 % 4.8-9.0 EOSINOPHIL % (test code=EO%) 0.0 % 0.3-3.7 BASOPHIL % (test code=BA%) 0.4 % 0.0-2.0 NUCLEATED RBC % (test code=NRBC%) 0.0 % 0-0 NEUTROPHIL # (test code=NT#) 11.92 x10 3/uL 2.0-7.6 IMMATURE GRANULOCYTE # (test code=IG#) 0.11 x10 3/uL 0.00-0.03 LYMPHOCYTE # (test code=LY#) 0.97 x10 3/uL 1.0-3.8 MONOCYTE # (test code=MO#) 1.20 x10 3/uL 0.1-0.8 EOSINOPHIL # (test code=EO#) 0.00 x10 3/uL 0.0-0.2 BASOPHIL # (test code=BA#) 0.05 x10 3/uL 0.0-0.2 NUCLEATED RBC # (test code=NRBC#) 0.00 x10 3/uL 0.0-0.1 MANUAL DIFF REQUIRED (test code=MDIFF) NO - XR CHEST 1 [id number] 12:19:00 FAX: Orlando Slater MD [phone] [place]: St: ADM FAX: Geremias Calvo MD [phone] Name: KEVIN GRIMALDO [facility] : 1935 Age/S: 83/F [address] [place] [address] Unit #: [id number] Loc: [address] [address] Phys: Geremias Blanco MD Acct: [id number] Dis Date: Status: ADM IN PHONE #: [phone] Exam Date: 04/03/2019 1212 FAX #: [phone] Reason: f/u right ptx EXAMS: CPT CODE: [id number] XR CHEST 1 V 37901 PROCEDURE: Chest Radiograph. Clinical Indication: Right pneumothorax. Comparison: Chest radiograph 04/03/2019 at 8:30 AM. FINDINGS: The chest shows a large essentially unchanged right pneumothorax. There is atelectasis and consolidation within much of the right lung. There is vascular congestion within the left lung. The heart size and pulmonary vasculature are normal. The trachea is midline. There are no clinically significant osseous abnormalities noted. IMPRESSION: 1. Large essentially unchanged right pneumothorax with atelectasis and consolidation throughout much of the right lung. 2. Vascular congestion within the left lung. SL: CY-H at 4184 Reported and signed by: Reynold Rodriges M.D. CC: Orlando Ball MD; Geremias Blanco MD Technologist: RT Jillian(Amy)(M) Trnscrd Date/Time/By: 04/03/2019 (2461) : By: [email or web address] Orig Print D/T: S: 04/03/2019 (4132) PAGE 1 Signed Report - XR ABDOMEN 1V (KUB)2019-04-03 10:03:00 FAX: Orlando Slater MD [phone] [place]: St: ADM Name: KEVIN LIGHT [facility] : [birth year] Age/S: 83/F [address] [place] [address] Unit #: [id number] Loc: [address] [address] Phys: Orlando Ball MD Acct: [id number] Dis Date: Status: ADM IN PHONE #: [phone] Exam Date: 04/03/2019 0844 FAX #: [phone] Reason: vomiting EXAMS: CPT CODE: [id number] XR ABDOMEN 1V (KUB) 27228 ABDOMEN RADIOGRAPH ONE VIEW 04/03/2019 AT 0834 HOURS. CLINICAL HISTORY: Vomiting. Recent cardiac arrest. Fall. COMPARISON STUDIES: Chest one view from the same day and visualized abdomen in the lumbar spine CT from 11/24/2008. FINDINGS: An AP view of the abdomen was obtained. Nonobstructive bowel gas pattern without pneumatosis or portal venous air. Limited study for free air in a supine film. Formed fecal material considered within the upper l imits of normal. Prior cholecystectomy clips are seen in the right upper q uadrant. Diffuse osteopenia with moderate to severe lumbosacral spondylosi s. No destructive bone lesions. A right pneumothorax is again identified a s described in the chest radiograph from the same day. IMP RESSION: 1. Roughly 30% right pneumothorax as described in the concurren t chest radiograph. 2. Nonobstructive bowel gas pattern. 3. Cholecystectomy. SL: [id number] Elect ronically Signed by Jeff Ahumada on at 1003 Reported and signed by: Nabil Ahumada M.D. CC: Orlando Ball MD Technologist: RT Echo(R) Trnscrd Date/Time/By: 04/03/2019 (1003) : By: [email or web address] Orig Print D/T: S: 04/03/2019 (1007) PAGE 1 Signed Report - XR CHEST 1 [id number] 09:29:00 FAX: Orlando Slater MD [phone] [place]: St: ADM Name: KEVIN LIGHT [facility] : [birth year] Age/S: 83/F [address] [place], [place] [address]vd Unit #: [id number] Loc: [place] [address] Phys: Orlando Ball MD Acct: [id number] Dis Date: Status: ADM IN PHONE #: [phone] Exam Date: 04/03/2019 08 FAX #: [phone] Reason: vomiting EXAMS: CPT CODE: [id number] XR CHEST 1 V 30655 CHEST RADIOGRAPH ONE VIEW 04/03/2019 AT 0830 HOURS. CLINICAL HISTORY: Recent cardiac arrest with chest compressions. History of fall. COMPARISON STUDIES: Abdomen one view from the same day. FINDINGS: One view of the chest was obtained. An approximately 30% right lateral pneumothorax is identifie d without significant mediastinal shift. Compensatory hyperemia of the le ft lung is noted with no pulmonary edema or consolidation. Heavy aortic ca lcification without aneurysm. The cardiac silhouette is enlarged. Diffuse osteopenia without destructive bone lesions. Severe right glenohumeral pino int osteoarthritis. IMPRESSION: 1. Approximately 3 0% right lateral pneumothorax without tension component. 2. Comp ensatory hyperemia of the left lung. 3. Enlarged cardiac silhouette and severe atherosclerosis. Findings were conveyed to Nurse Carlos Eduardo powell at 0922 hours. FOR INTERNAL CODING PURPOS ES ONLY RESULT CODE: CVR SL: [id number] at 0929 Reported and signed by: Nabil Ahumada M.D. CC: Orlando faulkner MD Technologist: Remedios Guidry, RT( R) Trnscrd Date/Time/By: 04/03/2019 (09) : By: [email or web address] Orig Print D/T: S: 04/03/2019 (32) PAGE 1 Signed Report BASIC METABOLIC [id number] 08:26:00* Test Item Value Reference Range Comments SODIUM (test code=NA) 143 mEq/L 134-147 POTASSIUM (test code=K) 4.3 mEq/L 3.4-5.0 CHLORIDE (test code=CL) 111 mEq/L 100-108 CARBON DIOXIDE (test code=CO2) 27 mEq/L 21-33 ANION GAP (test code=GAP) 9 0-20 GLUCOSE (test code=GLU) 116 mg/dL 70-110 BLOOD UREA NITROGEN (test code=BUN) 35 mg/dL 7-18 GLOMERULAR FILTRATION RATE (test code=GFR) 20.3 70-80 Units of measure=ml/min/1.73 m2 CREATININE (test code=CREAT) 2.3 mg/dL 0.6-1.3 CALCIUM (test code=CA) 8.4 mg/dL 8.0-10.5 CBC W/AUTO [id number] 08:08:00* Test Item Value Reference Range Comments WHITE BLOOD CELL (test code=WBC) 17.61 x10 3/uL 4.5-11.0 RED BLOOD CELL (test code=RBC) 4.56 x10 6/uL 3.54-5.02 HEMOGLOBIN (test code=HGB) 14.0 g/dL 11.0-15.0 HEMATOCRIT (test code=HCT) 44.8 % 33.0-45.0 MEAN CELL VOLUME (test code=MCV) 98.2 fL 81.0-99.0 MEAN CELL HGB (test code=MCH) 30.7 pg 27.0-33.0 MEAN CELL HGB CONCETRATION (test code=MCHC) 31.3 g/dL 33.0-37.0 RED CELL DISTRIBUTION WIDTH CV (test code=RDW) 12.5 % 11.5-14.5 RED CELL DISTRIBUTION WIDTH SD (test code=RDW-SD) 45.3 fL 37.0-54.0 PLATELET COUNT (test code=PLT) 164 x10 3/uL 150-400 MEAN PLATELET VOLUME (test code=MPV) 11.3 fL 7.0-9.0 NEUTROPHIL % (test code=NT%) 85.9 % 56.0-77.0 IMMATURE GRANULOCYTE % (test code=IG%) 0.8 % 0.0-2.0 LYMPHOCYTE % (test code=LY%) 5.1 % 14.0-32.0 MONOCYTE % (test code=MO%) 7.9 % 4.8-9.0 EOSINOPHIL % (test code=EO%) 0.0 % 0.3-3.7 BASOPHIL % (test code=BA%) 0.3 % 0.0-2.0 NUCLEATED RBC % (test code=NRBC%) 0.0 % 0-0 NEUTROPHIL # (test code=NT#) 15.14 x10 3/uL 2.0-7.6 IMMATURE GRANULOCYTE # (test code=IG#) 0.14 x10 3/uL 0.00-0.03 LYMPHOCYTE # (test code=LY#) 0.89 x10 3/uL 1.0-3.8 MONOCYTE # (test code=MO#) 1.39 x10 3/uL 0.1-0.8 EOSINOPHIL # (test code=EO#) 0.00 x10 3/uL 0.0-0.2 BASOPHIL # (test code=BA#) 0.05 x10 3/uL 0.0-0.2 NUCLEATED RBC # (test code=NRBC#) 0.00 x10 3/uL 0.0-0.1 MANUAL DIFF REQUIRED (test code=MDIFF) NO RENAL FUNCTION [id number] 00:13:00* Test Item Value Reference Range Comments SODIUM (test code=NA) 142 mEq/L 134-147 POTASSIUM (test code=K) 4.4 mEq/L 3.4-5.0 CHLORIDE (test code=CL) 110 mEq/L 100-108 CARBON DIOXIDE (test code=CO2) 27 mEq/L 21-33 ANION GAP (test code=GAP) 9 0-20 GLUCOSE (test code=GLU) 99 mg/dL 70-110 BLOOD UREA NITROGEN (test code=BUN) 32 mg/dL 7-18 GLOMERULAR FILTRATION RATE (test code=GFR) 19.3 70-80 Units of measure=ml/min/1.73 m2 CREATININE (test code=CREAT) 2.4 mg/dL 0.6-1.3 ALBUMIN (test code=ALB) 2.80 g/dL 3.4-5.0 CALCIUM (test code=CA) 8.2 mg/dL 8.0-10.5 PHOSPHOROUS (test code=PHOS) 5.5 mg/dL 2.5-4.9 [id number] 00:13:00* Test Item Value Reference Range Comments MAGNESIUM (test code=MAG) 2.00 mg/dL 1.8-2.4 CBC W/AUTO [id number] 00:03:00* Test Item Value Reference Range Comments WHITE BLOOD CELL (test code=WBC) 22.61 x10 3/uL 4.5-11.0 RED BLOOD CELL (test code=RBC) 4.68 x10 6/uL 3.54-5.02 HEMOGLOBIN (test code=HGB) 14.7 g/dL 11.0-15.0 HEMATOCRIT (test code=HCT) 46.3 % 33.0-45.0 MEAN CELL VOLUME (test code=MCV) 98.9 fL 81.0-99.0 MEAN CELL HGB (test code=MCH) 31.4 pg 27.0-33.0 MEAN CELL HGB CONCETRATION (test code=MCHC) 31.7 g/dL 33.0-37.0 RED CELL DISTRIBUTION WIDTH CV (test code=RDW) 12.5 % 11.5-14.5 RED CELL DISTRIBUTION WIDTH SD (test code=RDW-SD) 45.9 fL 37.0-54.0 PLATELET COUNT (test code=PLT) 181 x10 3/uL 150-400 MEAN PLATELET VOLUME (test code=MPV) 10.9 fL 7.0-9.0 NEUTROPHIL % (test code=NT%) 86.3 % 56.0-77.0 IMMATURE GRANULOCYTE % (test code=IG%) 0.8 % 0.0-2.0 LYMPHOCYTE % (test code=LY%) 6.1 % 14.0-32.0 MONOCYTE % (test code=MO%) 6.4 % 4.8-9.0 EOSINOPHIL % (test code=EO%) 0.0 % 0.3-3.7 BASOPHIL % (test code=BA%) 0.4 % 0.0-2.0 NUCLEATED RBC % (test code=NRBC%) 0.0 % 0-0 NEUTROPHIL # (test code=NT#) 19.51 x10 3/uL 2.0-7.6 IMMATURE GRANULOCYTE # (test code=IG#) 0.19 x10 3/uL 0.00-0.03 LYMPHOCYTE # (test code=LY#) 1.38 x10 3/uL 1.0-3.8 MONOCYTE # (test code=MO#) 1.45 x10 3/uL 0.1-0.8 EOSINOPHIL # (test code=EO#) 0.00 x10 3/uL 0.0-0.2 BASOPHIL # (test code=BA#) 0.08 x10 3/uL 0.0-0.2 NUCLEATED RBC # (test code=NRBC#) 0.00 x10 3/uL 0.0-0.1 MANUAL DIFF REQUIRED (test code=MDIFF) NO - CT HEAD/BRAIN W/O [id number] 18:46:00 Name: KEVIN GRIMALDO [facility] : 1935 Age/S: 83 / F [address] [place] [address] Blvd Unit #: [id number] Loc: [place] [address] Phys: Orlando Ball MD Acct: [id number] Dis Date: Status: ADM IN PHONE #: [phone] Exam Date: 04/02/20191806 FAX #: [phone] Reason: AMS, ? CVA EXAMS: CPT CODE: [id number] CT HEAD/BRAIN W/O CONT 62808 Patient: KEVIN GRIMALDO. : 1935; Age: 83 years; Gender: Female. MR: [id number]. Ordering physician: Orlando Ball MD. CT BRAIN WITHOUT INTRAVENOUS CONTRAST: HISTORY: Altered mental status, cerebral vascular accident, right maxillary sinus fracture, right facial hematoma, status post fall. COMPARISON: None. FINDINGS: Computed tomography of the brain was performed utilizing contiguous transaxial sections from skull base to the vertex without the administration of intravenous contrast. Coronal and sagittal reformatted images were obtained. All CT scans at this location are performed using dose optimization technique as appropriate to a performed exam including the following: - Automated exposure control. -Adjustment of mA and/or KV according to patient's size (this includes techniques or standardized protocols for targeted exams where dose is matched to indication/reason for exam; i.e. extremities or head). -Use of iterative reconstruction technique. - Total DLP: 419.70 mGy-cm There is prominence of the ventricles, c ortical sulci and basilar cisterns compatible with age related involutiona l change. Periventricular and subcortical white matter hypodensities are compatible with age related small vessel microvascular change. Old in farct noted involving the left centrum semiovale extending to involve left thalamus, internal capsule and basal ganglia. 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 There is no evidence of midline shift, mass lesion , intraparenchymal hemorrhage, acute infarction, extra-axial collection or skull fracture. The posterior fossa is unremarkable. The p artially visualized orbits and mastoid air cells are unremarkable. Partial ly imaged comminuted displaced fracture of posterior wall of right maxilla ry sinus noted with large volume blood within right maxillary sinus. IMPRESSION: PAGE 1 Signed Report (CONTINUED) Name: KEVIN GRIMALDO [facility] : 1935 Age/S: 83 / F [address] [place] [address] Unit #: [id number] Loc: [place] [address] Phys: Orlando Ball MD Acct: [id number] Dis Date: Status: ADM IN PHONE #: [phone] Exam Date: 04/02/2019 180 FAX #: [phone] Reason: AMS, ? CVA EXAMS: CPT CODE: [id number] CT HEAD/BRAIN W/O CONT 53311 < Continued> 1. No evidence of acute intracranial pathology. 2. Age related involutional and small vessel microvascular changes as described. Old infarcts as described. 3. Partially imaged comminuted displaced fracture of posterior wall of right maxillary sinus with large volume blood within right maxillary sinus. SL: LINDA-H at 1846 Reported and signed by: Sherman Sequeira M.D. CC: Orlando Ball MD Technologist:Liz Sanders, RT(R)(CT) CTDI: DLP: Trnscb Date/Time: 04/02/2019 (1845) [email or web address] Orig Print D/T: S: 04/02/2019 (184) PAGE 2 Signed Report [id number] 07:21:00* Test Item Value Reference Range Comments GLUBED (test code=GLUBED) 186 MG/DL 70-110 Performed by certified hotbed lever operator at [facility] - DUP EXTRACRANIAL [id number] 13:23:00 Name: KEVIN GRIMALDO [facility] : 1935 Age/S: 83 / F [address] [place] [address] Unit #: [id number] Loc: [place] [address] Phys: Orlando Ball MD Acct: [id number] Dis Date: Status: ADM IN PHONE #: [phone] Exam Date: 04/01/2019 1253 FAX #: [phone] Reason: syncope EXAMS: CPT CODE: [id number] DUP EXTRACRANIAL LAZ 27441 CAROTID DOPPLER ULTRASOUND 04/01/2019. CLINICAL HISTORY: Syncope. COMPARISON STUDIES: None relevant. TECHNIQUE: Quevedo-scale, color Doppler and spectral Doppler of the carotid arteries was performed. Any reported ICA stenoses indirectly reference the distal internal carotid diameter as the denominator for stenosis measurement, utilizing consensus panel criteria. RIGHT: Minimal, if any, atherosclerotic plaque. ICA PSV 102 cm/sec CCA PSV 91 cm/sec ICA/CCA ratio 1.1 Vertebral flow is antegrade. LEFT: Mild calcified plaque in the left carotid bulb and ICA takeoff. ICA PSV 80 cm/sec CCA PSV 84 cm/sec ICA/CCA ratio 1.0 Vertebral flow is antegrade. IMPRESSION: 1. RIGHT: ICA stenosis less than 50 % by velocity criteria. 2. LEFT: ICA stenosis less than 50 % by velocity criteria. End Impression Consensus panel Doppler US criteria for diagnosis of ICA stenosis. Stenosis (%) ICA PSV (cm/sec) ICA/CCA ratio <50 <125 <2.0 50-69 125-230 2.0-4.0 >70 but less than >230 >4.0 near occlusion Near occlusion High, low, or undetectable Variable SL: [id number] PAGE 1 Signed Report (CONTINUED) Name: KEVIN GRIMALDO [facility] [place] : 1935 Age/S: 83 / F [address] [place] [address] Blvd Unit #: [id number] Loc: [place] [address] Phys: Orlando Ball MD Acct: [id number] Dis Date: Status: ADM IN PHONE #: [phone] Exam Date: 04/01/2019 1253 FAX #: [phone] Reason: syncope EXAMS: CPT CODE: [id number] DUP EXTRACRANIAL LAZ 13790 < Continued> at 1323 Reported and signed by: Nabil Ahumada M.D. CC: Prema Foote MD; Orlando Ball MD Technologist: Africa Mahan RDMS(Trinity)(BR) Trnscb Date/Time: 04/01/2019 (1323) [email or web address] Orig Print D/T: S: 04/01/2019 (2861) Probe: PAGE 2 Signed Report - XR ANKLE 3 + V [id number] 11:45:00 FAX: Orlando Slater MD [phone] [place]: St: ADM Name: KEVIN LIGHT [facility] : [birth year] Age/S: 83/F [address] [place] [address] Unit #: [id number] Loc: [address] [address] Phys: Orlando Ball MD Acct: [id number] Dis Date: Status: ADM IN PHONE #: [phone] Exam Date: 04/01/2019 1120 FAX #: [phone] Reason: fall, pain EXAMS: CPT CODE: [id number] XR ANKLE 3 + [place] RT 15377 RIGHT KNEE SERIES, RIGHT TIBIA/FIBULA SERIES AND RIGHT ANKLE SERIES 04/01/2019 AT 1040 HOURS. C LINICAL HISTORY: Pain post fall. COMPARISONS: None relevant. FINDINGS: RIGHT KNEE: 2 AP and lateral views were obtaine d. Severe osteopenia and tricompartmental osteoarthritis with moderate to severe lateral and patellofemoral compartment joint space loss and almost complete medial compartment joint space loss. Associated subchondral scl erosis of the medial and lateral femoral condyles is seen. No fracture, dislocation or destructive bone lesion. Very small suprapatellar ariane nt effusion. Overall diminished muscle mass. RIGHT TIBIA/FIBULA: 3 AP and lateral views were obtained showing diffuse osteopenia without ac lac vieux fracture, dislocation or destructive bone lesion. Severe tricompartme ntal knee osteoarthritis as described above. Diminished muscle mass. RIGHT ANKLE: 3 AP, lateral and mortise views were obtained showing diffuse osteopenia and moderate tibiotalar joint osteoarthritis. No si gns of fracture, dislocation or destructive bone lesion. The mortise join t space and 5th metatarsal base are preserved. No joint effusion. IMPRESSION: 1. Severe right knee tricompartmental osteoarthritis without acute fracture or dislocation. 2. Very small suprapatel lar joint effusion. 3. Diffuse osteopenia without acute tibial or fibula r fractures. 4. Osteopenia and degenerative change without acute fractur e or dislocation in the right ankle. 5. Diminished muscle mass. SL: [id number] at 1145 Reported and signed by: Nabil Ahumada M.D. PAGE 1 Signed Report (CON TINUED) FAX: Orlando Slater MD [phone] [place]: St: ADM-- N uriel: KEVIN GRIMALDO [facility] : 1935 Age/S: 83/F [address] [place] [address] Unit #: [id number] Loc: [address] [address] Phys: Maxim Ball MD Acct: [id number] Dis D ate: Status: ADM IN PHONE #: Exam Date: 04/01/2019 1120 FAX #: [phone] Reason: fall, pain EXAMS: CPT CODE: [id number] XR ANKLE 3 + V RT [id number] <Continued> CC: Orlando Ball MD Technologist: RT Ursula(R) Trnscrd Date/Time/By: 04/01/2019 (1145) : By: [email or web address] Orig Print D/T: S: 04/01/2019 (5531) PAGE 2 Signed Report - XR TIBIA/FIBULA 2 V [id number] 11:45:00 FAX: Orlando Slater MD [phone] [place]: St: ADM Name: KEVIN LIGHT [facility] : [birth year] Age/S: 83/F [address] [place] [address] Unit #: [id number] Loc: [address] [address] Phys: Orlando Ball MD Acct: [id number] Dis Date: Status: ADM IN PHONE #: [phone] Exam Date: 04/01/2019 1120 FAX #: [phone] Reason: fall, pain EXAMS: CPT CODE: [id number] XR TIBIA/FIBULA 2 [place] [id number] RIGHT KNEE SERIES, RIGHT TIBIA/FIBULA SERIES AND RIGHT ANKLE SERIES 04/01/2019 AT 1040 HOURS. C LINICAL HISTORY: Pain post fall. COMPARISONS: None relevant. FINDINGS: RIGHT KNEE: 2 AP and lateral views were obtaine d. Severe osteopenia and tricompartmental osteoarthritis with moderate to severe lateral and patellofemoral compartment joint space loss and almost complete medial compartment joint space loss. Associated subchondral scl erosis of the medial and lateral femoral condyles is seen. No fracture, dislocation or destructive bone lesion. Very small suprapatellar ariane nt effusion. Overall diminished muscle mass. RIGHT TIBIA/FIBULA: 3 AP and lateral views were obtained showing diffuse osteopenia without ac lac vieux fracture, dislocation or destructive bone lesion. Severe tricompartme ntal knee osteoarthritis as described above. Diminished muscle mass. RIGHT ANKLE: 3 AP, lateral and mortise views were obtained showing diffuse osteopenia and moderate tibiotalar joint osteoarthritis. No si gns of fracture, dislocation or destructive bone lesion. The mortise join t space and 5th metatarsal base are preserved. No joint effusion. IMPRESSION: 1. Severe right knee tricompartmental osteoarthritis without acute fracture or dislocation. 2. Very small suprapatel lar joint effusion. 3. Diffuse osteopenia without acute tibial or fibula r fractures. 4. Osteopenia and degenerative change without acute fractur e or dislocation in the right ankle. 5. Diminished muscle mass. SL: [id number] at 1142 Reported and signed by: Nabil Ahumada M.D. PAGE 1 Signed Report (CON TINUED) FAX: Orlnado Slater MD [phone] [place]: St: ADM-- N uriel: KEVIN GRIMALDO [facility] : 1935 Age/S: 83/F [address] [place] [address] Unit #: [id number] Loc: [address] [address] Phys: Maxim Ball MD Acct: [id number] Dis D ate: Status: ADM IN PHONE #: Exam Date: 04/01/2019 1120 FAX #: Reason: fall, pain EXAMS: CPT CODE: [id number] XR TIBIA/FIBULA 2 [place] [id number] <Continued> CC: Orlando Ball MD Technologist: RT [facility]ula[facility] Date/Time/By: 04/01/2019 (3149) : By: [email or web address] Orig Print D/T: S: 04/01/2019 (1410) PAGE 2 Signed Report - XR KNEE 1 OR 2 V [id number] 11:45:00 FAX: Orlando Slater MD [phone] [place]: St: ADM Name: KEVIN LIGHT [facility] : [birth year] Age/S: 83/F [address] [place] [address] Bl Unit #: [id number] Loc: [address] [address] Phys: Orlando Ball MD Acct: [id number] Dis Date: Status: ADM IN PHONE #: [phone] Exam Date: 04/01/2019 1120 FAX #: [phone] Reason: fall, pain EXAMS: CPT CODE: [id number] XR KNEE 1 OR 2 V RT 17931 RIGHT KNEE SERIES, RIGHT TIBIA/FIBULA SERIES AND RIGHT ANKLE SERIES 04/01/2019 AT 1040 HOURS. C LINICAL HISTORY: Pain post fall. COMPARISONS: None relevant. FINDINGS: RIGHT KNEE: 2 AP and lateral views were obtaine d. Severe osteopenia and tricompartmental osteoarthritis with moderate to severe lateral and patellofemoral compartment joint space loss and almost complete medial compartment joint space loss. Associated subchondral scl erosis of the medial and lateral femoral condyles is seen. No fracture, dislocation or destructive bone lesion. Very small suprapatellar ariane nt effusion. Overall diminished muscle mass. RIGHT TIBIA/FIBULA: 3 AP and lateral views were obtained showing diffuse osteopenia without ac lac vieux fracture, dislocation or destructive bone lesion. Severe tricompartme ntal knee osteoarthritis as described above. Diminished muscle mass. RIGHT ANKLE: 3 AP, lateral and mortise views were obtained showing diffuse osteopenia and moderate tibiotalar joint osteoarthritis. No si gns of fracture, dislocation or destructive bone lesion. The mortise join t space and 5th metatarsal base are preserved. No joint effusion. IMPRESSION: 1. Severe right knee tricompartmental osteoarthritis without acute fracture or dislocation. 2. Very small suprapatel lar joint effusion. 3. Diffuse osteopenia without acute tibial or fibula r fractures. 4. Osteopenia and degenerative change without acute fractur e or dislocation in the right ankle. 5. Diminished muscle mass. SL: [id number] at 1145 Reported and signed by: Nabil Ahumada M.D. PAGE 1 Signed Report (CON TINUED) FAX: Orlando Slater MD [phone] [place]: St: ADM-- N uriel: KEVIN GRIMALDO [facility] : 1935 Age/S: 83/F [address] [place] [address] Unit #: [id number] Loc: [address] [address] Phys: Maxim Ball MD Acct: [id number] Dis D ate: Status: ADM IN PHONE #: Exam Date: 04/01/2019 1120 FAX #: Reason: fall, pain EXAMS: CPT CODE: [id number] XR KNEE 1 OR 2 V RT 53356 <Continued> CC: Orlando Ball MD Technologist: RT Ursula(R) Trnscrd Date/Time/By: 04/01/2019 (1145) : By: [email or web address] Orig Print D/T: S: 04/01/2019 (1149) PAGE 2 Signed Report Urine QBK4080-37-08 05:31:00* Test Item Value Reference Range Comments Urine WBC (test vpul=5652-0) 0-5 0-5 Urine KLX9933-49-10 05:31:00* Test Item Value Reference Range Comments Urine RBC (test uvyl=13182-8) 6-10 0-5 Urine Qkvemmaz6778-98-16 05:31:00* Test Item Value Reference Range Comments Urine Bacteria (test cade=32078-3) MODERATE NONE Urine Epithelial Zdxva7543-88-95 05:31:00* Test Item Value Reference Range Comments Urine Epithelial Cells (test fagl=44191-8) MODERATE NONE Urine Dtjgx6449-66-56 05:16:00* Test Item Value Reference Range Comments Urine Color (test sfwd=9513-4) YELLOW YELLOW Urine Qlnidut5477-29-26 05:16:00* Test Item Value Reference Range Comments Urine Clarity (test cahy=96660-5) CLEAR CLEAR Urine Specific Yrygnoo8332-93-09 05:16:00* Test Item Value Reference Range Comments Urine Specific [place] (test xvyy=2647-6) 1.015 1.010-1.025 Urine dU1936 05:16:00* Test Item Value Reference Range Comments Urine pH (test gghn=19361-8) 7.5 5-7 Urine Leukocyte Thxqrgus0174-39-62 05:16:00* Test Item Value Reference Range Comments Urine Leukocyte Esterase (test zwis=83371-8) NEGATIVE NEGATIVE Urine Ipcssqa7928-02-80 05:16:00* Test Item Value Reference Range Comments Urine Nitrite (test bqks=35829-7) NEGATIVE NEGATIVE Urine Hkkctgr5353-73-22 05:16:00* Test Item Value Reference Range Comments Urine Protein (test ewpn=42143-4) NEGATIVE NEGATIVE Urine Glucose (UA)2019-04-01 05:16:00* Test Item Value Reference Range Comments Urine Glucose (UA) (test cyqx=83119-3) NEGATIVE NEGATIVE Urine Eihyvyp5288-18-79 05:16:00* Test Item Value Reference Range Comments Urine Ketones (test qxsq=94681-7) 1+ NEGATIVE Urine Hbjolvcnfjus0767-88-39 05:16:00* Test Item Value Reference Range Comments Urine Urobilinogen (test xdqi=97974-5) 0.2 0.2-1 Urine Dpamoazsm0397-19-18 05:16:00* Test Item Value Reference Range Comments Urine Bilirubin (test gfjz=0412-6) NEGATIVE NEGATIVE Urine Pdeaf0739-11-21 05:16:00* Test Item Value Reference Range Comments Urine Blood (test wpmi=97322-0) TRACE NEGATIVE CT CERVICAL SPINE JT0849-82-01 04:33:00 [facility] [address] [place] [address] Patient Name: KEVIN GRIMALDO MR #: [id number] : 1935 Age/Sex: 83/F Req #: [id number] Adm Physician: Ordered by: LILLIAN TOTH DO Report #: [id number] Location: ER Room/Bed: Procedure: [id number] CT /CT CERVICAL SPINE WO Exam Date: 04/01/19 Exam Time: 0411 REPORT STATUS: Signed Hist ory: Fall. Comparison studies: CT cervical spine from 03/31/2019. Techn ique: Axial images were obtained through the cervical region.. Coronal and sagittal images reconstructed from the axial data. Dose modulation, iterative reconstruction, and/or weight based adjustment of the mA/kV was utilized to re duce the radiation dose to as low as reasonably achievable. Intravenous c ontrast: None Findings: Fractures: None. Soft tissue injuries: Subcu taneous soft tissue edema/hematoma is partially visualized in the right perima ndibular region, paving stone installer space and right anterolateral aspect of the neck. The airway is patent. Atlantoaxial articulation: Intact. Alignment: Rever joesph of normal cervical lordosis is either positional or due to muscle spasm.. Levocurvature of the upper cervical spine is positional, as head is tilted. Un changed 2 mm grade 1 anterolisthesis at C4-C5. Cervicomedullary junction: No a bnormalities. The foramen magnum is patent. Soft tissues: No abnormalities. Vertebrae: No fractures, infection or neoplasm. Degenerative changes: Moderate degenerative changes in the anterior atlantodental joint. C3- C4: Mild right foraminal stenosis due to uncovertebral arthrosis. C4-C5: Mild left foraminal stenosis due to facet and uncovertebral arthrosis. C5-C6: Moder ate to severe degenerative disc disease. Posterior disc osteophyte complex res ults in mild canal stenosis. Moderate right foraminal stenosis due to uncovert ebral arthrosis. C6-C7: Severe degenerative disc disease. Posterior disc ost eophyte complex results in mild canal stenosis. Incidental finding: Emphy sematous changes in bilateral lung apices. IMPRESSION: 1. No acute ce rvical spine fracture or dislocation. Reversal of normal cervical lordosis is either positional or due to muscle spasm. 2. Extensive subcutaneous soft t issue edema/hematoma in right anterolateral aspect of the neck and right face is partially visualized. 3. Ligament, spinal cord and or vascular abnorma lities cannot be excluded on the basis of this examination. 4. Unchanged cervical spondylosis as detailed above. Signed by: Dr. Natividad goins M.D. on 04/01/2019 4:39 AM Dictated By: NATIVIDAD MACDONALD MD Electronic ally Signed By: NATIVIDAD MACDONALD MD on 04/01/19438 Transcribed By: LONNY on 04/01/19438 COPY TO: LILLIAN TOTH DO CT BRAIN KH6758-58-15 02:15:00 [place] [address] Patient Name: KEVIN GRIMALDO MR #: [id number] : 1935 Age/Sex: 83/F Req #: [id number] Adm Physician: Ordered by: LILLIAN TOTH DO Report #: [id number] Location: ER Room/Bed: Procedure: [id number] CT /CT BRAIN WO Exam Date: 04/01/19 Exam Time: 0032 REPORT STATUS: Signed EXAMINATION: Head CT without contrast. HISTORY:Fall. COMPARISON:CT brain from 03/31/2019. TECHNIQUE: Multidetector axial images were obtained from the for amen magnum to the vertex without contrast. The images were reconstructed usin g brain and bone algorithms. Thin section brain images were reformatted into coronal and sagittal planes. Dose modulation, iterative reconstruction, and/ or weight based adjustment of the mA/kV was utilized to reduce the radiation d ose to as low as reasonably achievable. Intravenous contrast: None IMAGE QUALITY: Acceptable. FINDINGS: Skull/scalp: No lytic or blasti c. lesions. No surgical changes. Parenchyma: Unchanged focal hypodensity in posterior limb of left internal capsule that extends superiorly to the david na radiata and centrum semiovale represents sequele of prior vascular insult o r remote hematoma. Unchanged chronic lacunar infarct in right lentiform nucleu s. Unchanged nonspecific bilateral frontoparietal patchy white matter hypodens ity likely represent small vessel ischemic changes. No acute hemorrhage, mas s or acute major vascular territorial infarct. Arteries: No density sugges tive of thrombosis. Mild atherosclerotic calcification in bilateral carotid si phon. Dural sinuses: No abnormal density suggestive of thrombosis. Ventricles: No hydrocephalus or displacement. Extra-axial spaces: No ab normal density. Brain volume: Generalized age-related cerebral volume lo ss. Craniocervical junction: No mass, Chiari malformation, or basilar in vagination. Sella: No mass. Paranasal/mastoid sinuses: Partial hemo rrhagic opacification of right maxillary sinus with acute displaced fracture o f posterior lateral wall. IMPRESSION: No acute intracranial abnormalit y. No change since CT brain from 03/31/2019. Chronic findings: 1. Genera lized age-related cerebral volume loss. 2. Mild supratentorial white matter mi crovascular ischemic changes. 3. Sequele of chronic vascular insult or hemorrh age in left posterior limb of internal capsule, jenkins radiata and centrum elizabeth iovale. 4. Chronic lacunar infarct in right lentiform nucleus. Signed by: Dr. Natividad Macdonald M.D. on 04/01/2019 2:21 AM Dictated By: NATIVIDAD WYATT MD 0 Transcrib ed By: LONNY on 04/01/19220 COPY TO: LILLIAN TOTH DO Sodium Fdrze9709-86-90 02:14:00* Test Item Value Reference Range Comments Sodium Level (test eree=9167-2) 139 136-145 Potassium Qlpxj7522-93-11 02:14:00* Test Item Value Reference Range Comments Potassium Level (test zvtb=6262-0) 4.4 3.5-5.1 Chloride Kimsu2701-54-27 02:14:00* Test Item Value Reference Range Comments Chloride Level (test azyb=3884-5) 103 98-107 Carbon Dioxide Ceotw5009-20-45 02:14:00* Test Item Value Reference Range Comments Carbon Dioxide Level (test efag=3101-3) 28 22-29 Anion Dsi9805-47-50 02:14:00* Test Item Value Reference Range Comments Anion Gap (test yhcz=47692-7) 12.4 8-16 Blood Urea Mifqbgcf0254-87-18 02:14:00* Test Item Value Reference Range Comments Blood Urea Nitrogen (test honk=3401-7) 13 7-26 Uylxllvimd0852-43-03 02:14:00* Test Item Value Reference Range Comments Creatinine (test qbdy=0772-1) 0.78 0.57-1.11 BUN/Creatinine Metgy0103-26-81 02:14:00* Test Item Value Reference Range Comments BUN/Creatinine Ratio (test ccbr=0146-7) 17 6-25 Estimat Glomerular Filtration Sygs8828-25-64 02:14:00* Test Item Value Reference Range Comments Estimat Glomerular Filtration Rate (test pfug=282769948) > 60 >60 Ranges were taken from the National Kidney Disease Education Program and the [facility] literature.Reference ranges:60 or greater: Qhzquk44-00 ( for 3 consecutive months): Chronic kidney disease 15 or less: Kidney failure Glucose Dcgmz2741-66-83 02:14:00* Test Item Value Reference Range Comments Glucose Level (test dnwa=HZW4604) 102 74-118 Calcium Qutmy4016-69-69 02:14:00* Test Item Value Reference Range Comments Calcium Level (test jpgb=04155-2) 9.6 8.4-10.2 Total Xuteqcurn2499-68-50 02:14:00* Test Item Value Reference Range Comments Total Bilirubin (test sunf=0687-2) 1.2 0.2-1.2 Aspartate Amino Transf (AST/SGOT)2019-04-01 02:14:00* Test Item Value Reference Range Comments Aspartate Amino Transf (AST/SGOT) (test code=Aspartate Amino Transf (AST/SGOT)) 21 5-34 Alanine Aminotransferase (ALT/SGPT)2019-04-01 02:14:00* Test Item Value Reference Range Comments Alanine Aminotransferase (ALT/SGPT) (test nwmy=9155-0) 10 0-55 Total Awyjzpo3858-65-53 02:14:00* Test Item Value Reference Range Comments Total Protein (test rhlj=0929-8) 7.2 6.5-8.1 Ohtxxbn1090-43-57 02:14:00* Test Item Value Reference Range Comments Albumin (test waaa=3943-0) 3.5 3.5-5.0 Kwwpuphm1046-19-43 02:14:00* Test Item Value Reference Range Comments Globulin (test ergr=71170-6) 3.7 2.3-3.5 Albumin/Globulin Dkzzw7187-96-10 02:14:00* Test Item Value Reference Range Comments Albumin/Globulin Ratio (test btus=3174-3) 0.9 0.8-2.0 Alkaline Fbsdohwpcus1362-59-13 02:14:00* Test Item Value Reference Range Comments Alkaline Phosphatase (test ktoq=9271-8) 84 40-150 Creatine Smnkgj8022-38-84 02:14:00* Test Item Value Reference Range Comments Creatine Kinase (test kizr=9658-6) 230 29-168 Creatine Kinase WH4919-25-48 02:09:00* Test Item Value Reference Range Comments Creatine Kinase MB (test yofn=06098-2) 3.50 0-4.3 Troponin B7491-88-90 02:09:00* Test Item Value Reference Range Comments Troponin I (test yvyj=48703-5) < 0.05 0.0-0.40 White Blood Qffnt6807-46-93 01:43:00* Test Item Value Reference Range Comments White Blood Count (test snan=9183-8) 11.22 4.8-10.8 Red Blood Mmfcb6615-07-97 01:43:00* Test Item Value Reference Range Comments Red Blood Count (test ploi=597-7) 4.55 3.6-5.1 Wntpgvnldx2702-80-79 01:43:00* Test Item Value Reference Range Comments Hemoglobin (test nnqy=06907-2) 14.1 12.0-16.0 Rxzodaampr2243-69-90 01:43:00* Test Item Value Reference Range Comments Hematocrit (test znjd=4479-5) 42.8 34.2-44.1 Mean Corpuscular Qylgcy7063-96-80 01:43:00* Test Item Value Reference Range Comments Mean Corpuscular Volume (test bylh=334-6) 94.1 81-99 Mean Corpuscular Vdctuaxuxg8308-54-93 01:43:00* Test Item Value Reference Range Comments Mean Corpuscular Hemoglobin (test dpmv=143-7) 31.0 28-32 Mean Corpuscular Hemoglobin Fshmmwk4909-94-88 01:43:00* Test Item Value Reference Range Comments Mean Corpuscular Hemoglobin Concent (test zqkn=043-8) 32.9 31-35 Red Cell Distribution Orsab3351-42-14 01:43:00* Test Item Value Reference Range Comments Red Cell Distribution Width (test qtwy=45788-4) 12.2 11.7-14.4 Platelet Mbmcl7854-50-84 01:43:00* Test Item Value Reference Range Comments Platelet Count (test vjqy=281-0) 134 140-360 Neutrophils (%) (Auto)2019-04-01 01:43:00* Test Item Value Reference Range Comments Neutrophils (%) (Auto) (test glyb=64260-9) 75.1 38.7-80.0 Lymphocytes (%) (Auto)2019-04-01 01:43:00* Test Item Value Reference Range Comments Lymphocytes (%) (Auto) (test xwrw=216-5) 14.9 18.0-39.1 Monocytes (%) (Auto)2019-04-01 01:43:00* Test Item Value Reference Range Comments Monocytes (%) (Auto) (test ourr=5058-7) 7.7 4.4-11.3 Eosinophils (%) (Auto)2019-04-01 01:43:00* Test Item Value Reference Range Comments Eosinophils (%) (Auto) (test triq=443-2) 1.6 0.0-6.0 Basophils (%) (Auto)2019-04-01 01:43:00* Test Item Value Reference Range Comments Basophils (%) (Auto) (test jarb=267-0) 0.3 0.0-1.0 IM GRANULOCYTES %2019-04-01 01:43:00* Test Item Value Reference Range Comments IM GRANULOCYTES % (test code=IM GRANULOCYTES %) 0.4 0.0-1.0 Neutrophils # (Auto)2019-04-01 01:43:00* Test Item Value Reference Range Comments Neutrophils # (Auto) (test ewll=583-4) 8.4 2.1-6.9 Lymphocytes # (Auto)2019-04-01 01:43:00* Test Item Value Reference Range Comments Lymphocytes # (Auto) (test mjyv=83489-3) 1.7 1.0-3.2 Monocytes # (Auto)2019-04-01 01:43:00* Test Item Value Reference Range Comments Monocytes # (Auto) (test gbww=302-2) 0.9 0.2-0.8 Eosinophils # (Auto)2019-04-01 01:43:00* Test Item Value Reference Range Comments Eosinophils # (Auto) (test rjxn=321-7) 0.2 0.0-0.4 Basophils # (Auto)2019-04-01 01:43:00* Test Item Value Reference Range Comments Basophils # (Auto) (test irde=142-0) 0.0 0.0-0.1 Absolute Immature Granulocyte (gkpa1705-97-88 01:43:00* Test Item Value Reference Range Comments Absolute Immature Granulocyte (auto (test code=Absolute Immature Granulocyte (auto) 0.05 0-0.1 HIP RIGHT 2-3 VW (+/- PELVIS)2019-04-01 01:17:00 [place] [address] Patient Name: KEVIN GRIMALDO MR #: [id number] : 1935 Age/Sex: 83/F Req #: [id number] Adm Physician: Ordered by: LILLIAN TOTH DO Report #: [id number] Location: ER Room/Bed: Procedure: DX /HIP RIGHT 2-3 VW (+/- PELVIS) Exam Date: Exam Time : REPORT STATUS: Signed Exam : Right hip 2 views with frontal pelvis History: Status post fall Com parison: Pelvic radiograph 03/31/2019 Findings: No acute, displaced fracture or dislocation. The femoral head projects appropriately over the acetabulum. Mild symmetric degenerative arthrosis of the hips. The inferior sacral body an d coccyx are obscured by rectal gas and stool. The sacral foramina appear inta ct superiorly. Sacroiliac joints and symphysis pubis are intact. Impressi on: 1. No acute osseous abnormality. Signed by: Dr. Sridhar Suero M.D. on 04/01/2019 1:20 AM Dictated By: SRIDHAR SUERO MD Electronically S igned By: SRIDHAR SUERO MD on 04/01/19119 Transcribed By: LONNY on 04/01/19119 COPY TO: LILLIAN TOTH DO KNEE RIGHT 1-2 WJFSU5910-27-82 01:15:00 [place] [address] Patient Name: KEVIN GRIMALDO MR #: [id number] : 1935 Age/Sex: 83/F Req #: [id number] Adm Physician: Ordered by: LILLIAN TOTH DO Report #: [id number] Location: ER Room/Bed: Procedure: [id number] DX /KNEE RIGHT 1-2 VIEWS Exam Date: 04/01/19 Exam Time: 34 REPORT STATUS: Signed E xam: Right knee 2 views History: Pain status post fall Comparison: N one. Findings: No acute displaced fracture or dislocation. Advanced tricomp artmental arthrosis with joint space narrowing, subchondral sclerosis, and mar ginal osteophytosis. No joint effusion. Soft tissues are unremarkable. Impression: No acute osseous abnormalities. Advanced tricompartment al arthrosis. Signed by: Dr. Sridhar Suero M.D. on 04/01/2019 1:17 AM Dictated By: SRIDHAR SUERO MD 6 Transcribed By: LONNY on 04/01/19116 COPY TO: LILLIAN TOTH DO CHEST SINGLE (PORTABLE)2019-04-01 01:11:00 [place] [address] Patient Name: KEVIN GRIMALDO MR #: [id number] : 1935 Age/Sex: 83/F Req #: [id number] Adm Physician: Ordered by: LILLIAN TOTH DO Report #: [id number] Location: ER Room/Bed: Procedure: [id number] DX /CHEST SINGLE (PORTABLE) Exam Date: 04/01/19 Exam Ti me: 0035 REPORT STATUS: Signed E xamination: Single AP view of the chest. COMPARISON: 03/31/2019 at 1822 INDICATION: Status post fall DISCUSSION: The lungs remain hyperi nflated with hyperlucency of the lung apices. No new consolidation, pleural ef fusion, or pneumothorax. Multiple skin folds project over the left lung, as pr eviously seen. Stable cardiomediastinal contour with tortuosity and atheroscle rotic calcification of the thoracic aorta. Convexity of the AP window likely i ndicates pulmonary hypertension. No acute osseous abnormality. IMPRESS ION: No acute cardiopulmonary abnormality or appreciable interval change r elative to the examination from 03/31/2019. Signed by: Dr. Sridhar Suero M.D. on 04/01/2019 1:15 AM Dictated By: SRIDHAR SUERO MD Electronically S igned By: SRIDHAR SUERO MD on 04/01/19114 Transcribed By: LONNY on 04/01/19114 COPY TO: LILLIAN TOTH DO CT MAXIO FAC/PARANAS QZ5296-77-12 01:07:00 [place] [address] Patient Name: KEVIN GRIMALDO MR #: [id number] : 1935 Age/Sex: 83/F Req #: [id number] Adm Physician: Ordered by: LILLIAN TOTH DO Report #: [id number] Location: ER Room/Bed: Procedure: [id number] CT /CT MAXIO FAC/PARANAS WO Exam Date: 04/01/19 Exam Ti me: 0032 REPORT STATUS: Signed H istory:Fall, right facial swelling. Comparison studies: None Technique : Axial images were obtained through the maxillofacial region. Coronal and s agittal images reconstructed from the axial data. Dose modulation, iterative r econstruction, and/or weight based adjustment of the mA/kV was utilized to red uce the radiation dose to as low as reasonably achievable. Intravenous contr ast: None Findings: Soft tissues: Markedly right facial (the articu lar, prezygomatic, premaxillary and perimandibular soft tissue edema/hematoma. Minimal soft tissue emphysema in right retroantral region. Moderate enlarge ment of right masseter muscle possibly represents posttraumatic hematoma. Bones: Acute displaced fracture of the posterior lateral wall of right maxi llary sinus. Chronic fracture deformity of right nasal bone without overlyin g soft tissue edema. Orbits: Globes: Intact Extra or intraconal abno rmalities: None. Paranasal sinuses: Partial hemorrhagic opacification of right maxillary sinus with an air-fluid level. IMPRESSION: 1. Acu te displaced fracture of the posterior lateral wall of right maxillary sinus. 2. Moderate right facial soft tissue edema/hematoma. Moderate right masseter muscle contusion/hematoma. 3. Chronic fracture deformity of right nasal bone. 4. Partial hemorrhagic opacification of right maxillary sinus. Signed by: Dr. Natividad Macdonald M.D. on 04/01/2019 1:15 AM Dictated By: NATIVIDAD MACDONALD MD 4 Trans cribed By: LONNY on 04/01/19114 COPY TO: LILLIAN TOTH DO CHEST SINGLE (PORTABLE)2019-03-31 18:53:00 [place] [address] Patient Name: KEVIN GRIMALDO MR #: [id number] : 1935 Age/Sex: 83/F Req #: [id number] Adm Physician: Ordered by: KENDRA RAMOS DIRECTOR [employer] Report #: [id number] Location: ER Room/Bed: Procedure: [id number] DX/CHEST SINGLE (PORTABLE) Exam Date: 03/31/19 Ema mcbride Time: 1822 REPORT STATUS: Signed EXAM: CHEST SINGLE (PORTABLE) DATE: 03/31/2019 4:48 PM INDICATION: fall [id number] 1822 COMPARISON: None FINDINGS: Lines and tubes: None Heart size normal. No focal pulmonary opacity, pleural effusion or pneumothorax. Lucencies in the upper lobes with scattered lung markings suggest bullous emphysema. Upper abdomen unremarkable. Surgic al clips are seen in the right upper quadrant. No acute bony abnormality ident ified. There is a suggestion of air in the soft tissues of the left cervical a maria m although this may only represent air trapped between skin folds. This may be better defined on CT of the neck of the same date. IMPRESSION: No ev idence for acute disease. Likely changes of bullous emphysema. Questionable ai r in the left cervical soft tissues. Signed by: Dr. Samantha Gray M.D. on 03/31/2019 6:58 PM Dictated By: SAMANTHA GRAY MD 57 Transcribed By: LONNY on 03/31/191857 COPY TO: KENDRA RAMOS NP PELVIS AP 1-2 [id number] 18:50:00 [place] [address] Patient Name: KEVIN GRIMALDO MR #: [id number] : 1934 Age/Sex: 83/F Req #: [id number] Adm Physician: Ordered by: KENDRA RAMOS NP Report #: [id number] Location: ER Room/Bed: Procedure: 0830-007 2 DX/PELVIS AP 1-2 VIEWS Exam Date: 03/31/19 Exam Ti me: 1821 REPORT STATUS: Signed E XAM: PELVIS AP 1-2 VIEWS DATE: 03/31/2019 4:48 PM INDICATION: [id number] COMPARISON: None FINDINGS: Single view of the pelvis shows no evidence for displaced fracture or dislocation. Sa cral struts appear intact. No obvious fractures at the hips. Soft tissues unre markable. IMPRESSION: No acute bony abnormality. Signed by: Dr. Jeremias Gray M.D. on 03/31/2019 6:52 PM Dictated By: SAMANTHA GRAY MD Elect ronically Signed By: SAMANTHA GRAY MD on 03/31/191851 Transcribed By: LONNY on 03/31/191851 COPY TO: KENDRA RAMOS [employer] CT CERVICAL SPINE [id number] 18:24:00 [place] [address] Patient Name: KEVIN GRIMALDO MR #: [id number] : 1935 Age/Sex: 83/F Req #: [id number] Adm Physician: Ordered by: KENDRA RAMOS [employer] Report #: [id number] Location: ER Room/Bed: Procedure: 0830-[address]/CT CERVICAL SPINE WO Exam Date: Exam Time: REPORT STATUS: Signed History: Fal l, pain Comparison studies: None Technique: Axial images were obta ined from the brain and cervical spine. Coronal and sagittal images reconstruc jhoan from the axial data. Dose modulation, iterative reconstruction, and/or rafa ght based adjustment of the mA/kV was utilized to reduce the radiation dose t o as low as reasonably achievable. Intravenous contrast: None Findi ngs: Head CT: Scalp/skull: No abnormalities. No fractures, blastic or lytic lesions. Brain sulci: Appropriate for age. Ventricles: Mild comp ensatory dilatation. No hydrocephalus. Extra-axial spaces: Small lipoma along the anterior falx cerebri without mass effect. No fluid collections. Parenchyma: Hypodensity extending from the posterior limb of left internal capsule extends superiorly to the jenkins radiata and centrum semiovale white matter likely reflects sequela of prior vascular insult or remote hematoma. A dditional subcentimeter round hypodensity within the right lentiform nuclei is also consistent with a remote lacunar infarction. Nonspecific bilateral fro ntoparietal patchy white matter hypodensity are likely related to small vessel ischemic changes. No masses, hemorrhage, acute or chronic cortical vascular i nsults. Sellar/suprasellar region: Partial empty sella. Craniocervical ju nction: Patent foramen magnum. No Chiari one malformation. Incidental find ings: Mild atherosclerotic calcification in bilateral carotid siphon. Cer vical spine CT: Airway: Patent. Fractures: None. Soft tissues: No gr oss abnormalities. Atlantoaxial articulation: Intact. Alignment: Reversal of the normal cervical lordosis. 2 mm grade 1 anterolisthesis at C4-C5. Cer vicomedullary junction: No abnormalities. Patent foramen magnum. Vertebrae: No infection or neoplasm. Degenerative changes: Moderate degenerative changes and anterior atlantodental joint. C3-C4: Mild right foraminal stenosis due to uncovertebral arthrosis. C4-C5: Mild left foraminal stenosis due to facet and uncovertebral arthrosis. C5-C6: Moderate to severe degenerative disc disease. Posterior disc osteophyte complex results in mild canal stenosis. Moderate right foraminal stenosis due to uncovertebral arthrosis. C6-C7: Sever e degenerative disc disease. Posterior disc osteophyte complex results in mild canal stenosis. Incidental finding: Emphysematous changes in bilateral l albert apices. IMPRESSION: Head CT: No acute abnormalities. Chroni c findings: 1. Mild supratentorial white matter microvascular ischemic changes . 2. Chronic lacunar infarct in right lentiform nucleus. 3. Sequel a of development analyst umm vascular insult or hemorrhage in left posterior limb of internal capsule, jenkins radiata and centrum semiovale. Cervical spine CT: 1. No acute cer vical spine fracture or dislocation. Reversal of normal cervical lordosis is e ither positional or due to muscle spasm. 2. Cannot adequately evaluate for li gament, spinal cord and or vascular abnormalities. 3. Multilevel cervical s pondylosis as detailed above. A preliminary report was given by Neurorad iology fellow Dr. Smart at 6:37 PM on 03/31/2019. I have reviewed the images and agree with findings in the preliminary report. Signed by: Dr. Natividad Macdonald M.D. on 03/31/2019 8:34 PM Dictated By: NATIVIDAD MACDONALD MD Electr onically Signed By: NATIVIDAD MACDONALD MD on 03/31/192033 Transcribed By: LONNY on 03/31/192033 COPY TO: KENDRA RAMOS [employer] CT BRAIN WO 2019-03-31 18:24:00 [place] [address] Patient Name: KEVIN GRIMALDO MR #: [id number] : 1935 Age/Sex: 83/F Req #: [id number] Adm Physician: Ordered by: KENDRA RAMOS NP Report #: [id number] Location: ER Room/Bed: Procedure: 0830-[address]/CT BRAIN WO Exam Date: Exam Time: REPORT STATUS: Signed History: Fall, pain Comparison studies: None Technique: Axial images were obtained from the brain and cervical spine. Coronal and sagittal images reconstructed from the axial data. Dose modulation, iterative reconstruction, and/or weight based adjustment of the mA/kV was utilized to reduce the radiation dose to as low as reasonably achievable. Intravenous contrast: None Findings: Head CT: Scalp/skull: No abnormalities. No fractures, blastic or lytic lesions. Brain sulci: Appropriate for age. Ventricles: Mild compensatory dilatation. No hydrocephalus. Extra-axial spaces: Small lipoma along the anterior falx cerebri without mass effect. No fluid collections. Parenc hyma: Hypodensity extending from the posterior limb of left internal capsule extends superiorly to the jenkins radiata and centrum semiovale white matter li delfino reflects sequela of prior vascular insult or remote hematoma. Additional subcentimeter round hypodensity within the right lentiform nuclei is also c onsistent with a remote lacunar infarction. Nonspecific bilateral frontopariet al patchy white matter hypodensity are likely related to small vessel ischemic changes. No masses, hemorrhage, acute or chronic cortical vascular insults. Sellar/suprasellar region: Partial empty sella. Craniocervical junction: P atent foramen magnum. No Chiari one malformation. Incidental findings: M ild atherosclerotic calcification in bilateral carotid siphon. Cervical spi ne CT: Airway: Patent. Fractures: None. Soft tissues: No gross abnor malities. Atlantoaxial articulation: Intact. Alignment: Reversal of the n ormal cervical lordosis. 2 mm grade 1 anterolisthesis at C4-C5. Cervicomedul christian junction: No abnormalities. Patent foramen magnum. Vertebrae: No in fection or neoplasm. Degenerative changes: Moderate degenerative changes and anterior atlantodental joint. C3-C4: Mild right foraminal stenosis due to uncovertebral arthrosis. C4-C5: Mild left foraminal stenosis due to facet and uncovertebral arthrosis. C5-C6: Moderate to severe degenerative disc disease. Posterior disc osteophyte complex results in mild canal stenosis. Moderate right foraminal stenosis due to uncovertebral arthrosis. C6-C7: Severe degener ative disc disease. Posterior disc osteophyte complex results in mild canal st enosis. Incidental finding: Emphysematous changes in bilateral lung apice s. IMPRESSION: Head CT: No acute abnormalities. Chronic finding s: 1. Mild supratentorial white matter microvascular ischemic changes. 2. Ch ronic lacunar infarct in right lentiform nucleus. 3. Sequel a of chronic vascu lar insult or hemorrhage in left posterior limb of internal capsule, jenkins ra diata and centrum semiovale. Cervical spine CT: 1. No acute cervical spi ne fracture or dislocation. Reversal of normal cervical lordosis is either pos itional or due to muscle spasm. 2. Cannot adequately evaluate for ligament, s traci cord and or vascular abnormalities. 3. Multilevel cervical spondylosi s as detailed above. A preliminary report was given by Neuroradiology fe demetri Smart at 6:37 PM on 03/31/2019. I have reviewed the images and agree with findings in the preliminary report. Signed by: Nidia Lou on 03/31/2019 8:34 PM Dictated By: NATIVIDAD MACDONALD MD 33 Transcribed By: LONNY on 03/31 COPY TO: KENDRA RAMOS NP
--- NOTE | 2019-11-18 04:49 | Diagnostic Imaging Report ---
CT BRAIN WO HISTORY: Fall, trauma COMPARISON: Head CT 04/01/2019 Technique: Noncontrast axial scans were obtained from skull base to the vertex. Coronal and sagittal reconstructions obtained from the axial data. One or more of the following dose reduction techniques were used: Automated exposure control, adjustment of the mA and/or kV according to patient size, and/or utilization of iterative reconstruction technique. Motion artifacts obscure some details. DISCUSSION: Scalp/Skull: Unremarkable. Brain sulci: Mildly prominent. Ventricles: Compensatory dilatation. Extra-axial spaces: No masses or fluid collections. Carotid siphon calcifications are present. Parenchyma: Mild bilateral deep white matter hypodensity is likely chronic microvascular ischemic change. Associated old lacunar infarcts are seen in the right putamen, left striatocapsular region, and left jenkins radiata/centrum semiovale. 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 Otherwise, no masses, hemorrhage, or large vascular territory acute infarct. Dural sinuses: No abnormal densities. Sellar/Suprasellar region: Intact. Skull base: Intact. Incidental findings: None. IMPRESSION: 1. No acute intracranial abnormalities. 2. No significant change when compared to head CT dated 04/01/2019. 3. Old lacunar infarcts in the left striatocapsular region and left jenkins radiata/centrum semiovale may be related to chronic/remote watershed ischemia (left [place] internal border zone watershed territory) 4. Mild supratentorial chronic microvascular ischemic change with old right putamen lacunar infarct. 5. Mild generalized cerebral volume loss. Signed by: Dr. Stuart Nguyen M.D. on 11/18/2019 4:44 AM
--- NOTE | 2019-11-18 05:01 | Diagnostic Imaging Report ---
CT CERVICAL SPINE WO HISTORY: Trauma COMPARISON: Cervical spine CT 04/01/[address] 04/01/2019 TECHNIQUE: CT of the cervical spine without contrast. Sagittal and coronal reformations were created. One or more of the following dose reduction techniques were used: Automated exposure control, adjustment of the mA and/or kV according to patient size, and/or utilization of iterative reconstruction technique. FINDINGS: Mild bone demineralization limits evaluation. Cervical lordosis is straightened. There is mild cervicothoracic dextroscoliosis. No definite acute fracture or compression deformity is seen in the cervical spine. There is a small bone island in the right C4 vertebral body. Moderate atlantoaxial arthrosis is present. The craniocervical junction is otherwise intact. No gross spinal canal masses are seen. The paravertebral and paraspinal soft tissues are unremarkable. Moderate multilevel spondylosis is most prominent at C5-C6 and C6-C7. Associated multilevel bilateral facet arthrosis is present with grade 1 anterolisthesis of C4 on C5. There is at least mild canal stenosis at C5-C6 and C6-C7 due to posterior disc osteophyte complexes. Multilevel bilateral foraminal stenoses due to uncovertebral and facet arthrosis are also present - moderate on the left at C4-C5, and moderate on the right at C5-C6 There are emphysematous changes in the lung apices. Mild left carotid bulb calcified plaque is present. Partially imaged, subtle chronic-appearing, cortical irregularity along the posterior right mandibular ramus may be related to remote trauma. IMPRESSION: 1. No acute osseous abnormalities in the cervical spine. 2. Moderate multilevel spondylosis, most prominent at C5-C6 and C6-C7. Signed by: Dr. Stuart Nguyen M.D. on 11/18/2019 4:58 AM
[2019-11-18 06:19] VITALS: BP 99/68
--- NOTE | 2019-11-18 06:32 | Diagnostic Imaging Report ---
X-ray pelvis 1 view and right hip 2 views HISTORY: Pain. COMPARISON: X-ray right hip 09/01/2018 FINDINGS: Some of the osseous structures are partially obscured by bowel contents. Bones: No acute displaced fracture. Osseous alignment is within normal limits. Low bone mineral density. Joints: The joint spaces are well-maintained. Degenerative changes in the included spine, hips, and pelvis. Soft tissues: Metallic density projects in the right pelvis. Mild soft tissue edema overlying the greater trochanter. IMPRESSION: No acute radiographic osseous abnormality, although evaluation because bowel contents partially obscures pelvic osseous structures and there is low bone mineral density. Mild soft tissue edema overlying the greater trochanter. Degenerative changes in the included spine, hips, and pelvis. Signed by: Garry Mnoaco DO on 11/18/2019 6:29 AM
== END 2019-11-18 06:32 ==
LOC: ER 03:31
DX: S00.83XA Contusion of other part of head, initial encounter (principal); S51.001A Unspecified open wound of right elbow, initial encounter; M79.632 Pain in left forearm; M25.551 Pain in right hip; W19.XXXA Unspecified fall, initial encounter; Y92.128 Other place in nursing home as the place of occurrence of the external cause; I10 Essential (primary) hypertension; F41.9 Anxiety disorder, unspecified; K21.9 Gastro-esophageal reflux disease without esophagitis; Z86.73 Personal history of transient ischemic attack (TIA), and cerebral infarction without residual deficits
CPT/HCPCS: 70450; 72125; 99284